=== PATIENT | female | born 1995 | race Hispanic/Latino ===

== ENCOUNTER 2019-07-30 09:27 | Emergency (ER) | payer OTHER, SELFPAY ==
--- NOTE | 2019-07-30 09:33 | ED.GENADULT ---
HPI - General Adult General Chief complaint: Back Pain/Injury Stated complaint: flank pain Time Seen by Provider: 07/30/19 09:55 Source: patient and RN notes reviewed Mode of arrival: ambulatory Limitations: no limitations History of Present Illness HPI narrative: 53 old female presents with concern for bilateral flank pain for 2 to 3 days. Reports is painful to bend over, sit, stand. Reports trouble finding a comfortable position. Denies hematuria, dysuria, abdominal pain. Reports nausea. Reports history of pyelonephritis and problems with her kidneys. She had pyelonephritis in May 2019. MD complaint: Flank pain Related Data Home Medications Medication Instructions Recorded Confirmed aripiprazole mg 07/30/19 hydroxyzine HCl 07/30/19 sertraline mg 07/30/19 Allergies Allergy/AdvReac Type Severity Reaction Status Date / Time mushroom Allergy Unknown Verified 01/15/19 10:39 Review of Systems Review of Systems: Narrative: CONSTITUTIONAL: Reports malaise. Denies chills, sweats, or fever. CARDIOVASCULAR: Denies chest pain, palpitations RESPIRATORY: Denies dyspnea. GASTROINTESTINAL: Denies abdominal pain, vomiting, diarrhea. Reports nausea GENITOURINARY: Denies dysuria or hematuria. Reports bilateral flank pain MUSCULOSKELETAL: Denies back pain, joint pain, or myalgia. NEUROLOGIC: Denies numbness, weakness, or headache. All systems reviewed & are unremarkable except as noted in HPI and below PMFSH Past Medical History Medical History (Updated 07/30/19 @ 10:15 by Leonarda Monahan NP) History of asthma History of depression History of gastroesophageal reflux (GERD) History of hypothyroidism Surgical History Surgical History (Updated 06/19/19 @ 17:11 by Franca Monk PA-C) History of cholecystectomy History of tonsillectomy Family History Family History (Updated 01/15/19 @ 12:44 by DOCTOR UNKNOWN) Grandparent Diabetes mellitus Other Family history of hypercholesterolemia Family history of malignant neoplasm of thyroid Family history of thyroid disease Hypertension Social History Social History Smoking status: Former smoker Smoking end date: 06/26/14 Alcohol intake: current Comments At time of signature, agree with nursing past medical, surgical, social and family history. There is no relevant family history pertinent to the presenting complaint Exam Narrative: Exam Narrative: GENERAL: Well-appearing, well-nourished, and in no acute distress. HEAD: Normocephalic. EYES: PERRLA, conjunctivae clear. NECK: Supple. No lymphadenopathy CHEST: Clear to auscultation. No respiratory distress. HEART: Regular rate and rhythm. No murmur heard. Normal peripheral pulses. ABDOMEN: Soft, nontender upon palpation, nondistended, normal active bowel sounds, no palpable or pulsatile masses, no guarding. Bilateral CVA tenderness, worse on the right SKIN: Warm, dry, no rash. NEURO: Alert and oriented x3. PSYCH: Normal mood and affect Course Course Emergency Course: Patient is aware of, understands and agrees to be seen in emergency department. Patient agrees to f proceed directly to the emergency department. Portions of this record may have been created with voice recognition software Vital Signs Vital signs: Reviewed. Transfer Transfered to: [facility] Transportation: Other (Private vehicle) Transfer rationale: Bilateral flank pain Accepting physician: Francis Moore Transfer comments: Patient stable for transfer via private vehicle Medical Decision Making MDM Narrative Medical decision making narrative: Exam findings warrant further evaluation emergency department; patient is non-toxic appearing and is in no distress. Patient is appropriate for transfer via private vehicle. Critical Care Time Critical Care Time Critical Care Time: No Discharge Plan Discharge Clinical Impression: Bilateral flank pain Patient Disposition: Acute Care Hospital Condition: Stable
[2019-07-30 09:45] VITALS: BP 124/72; PULSE 99; RESP 20; TEMP 36.9; O2SAT 99
--- NOTE | 2019-07-30 10:13 | PC.NURSE ---
After exam and discussion with Carmelita Monahan [employer]- pt advised to got to ED with h/o issues-pt agrees and will go to [facility] via car--staff there informed
== END 2019-07-30 10:18 | disposition short-term general hospital (02) ==
PROVIDERS: Emergency Provider Nurse Practitioner
DX: R10.9 Unspecified abdominal pain (principal); Z87.891 Personal history of nicotine dependence; J45.909 Unspecified asthma, uncomplicated; F32.9 Major depressive disorder, single episode, unspecified; K21.9 Gastro-esophageal reflux disease without esophagitis; E03.9 Hypothyroidism, unspecified
CPT/HCPCS: 81003; 99212; G0463

== ENCOUNTER 2019-07-30 10:37 | Emergency (ER) | payer OTHER, SELFPAY ==
--- NOTE | 2019-07-30 11:02 | ED.BACK ---
HPI - Back Pain/Injury General Chief Complaint: Urogenital-Female Stated Complaint: Flank pain, from Time Seen by Provider: 07/30/19 10:50 Source: patient Mode of arrival: ambulatory Limitations: no limitations History of Present Illness HPI Narrative: Pt is a 23 y/o female who presents to the ED with c/o dull BOZENA flank pain that started 3 days ago. Pt states that last night at 6PM she started having sharp stabbing pain. She reports JENNINGS, nausea, heartburn, and dysuria, but denies urinary incontinence, fever, or vomiting. Pt took Ibuprofen with no relief and she denies a chance of or STI. She states that she was in the ED on 06/19/19 for hemturia and was told she had a kidney infection, but she did not finish her full dose of Abx. Pt denies recent heavy lifting falls, saddle anesthesia, BLE swelling/pain. She states that she has rhinorrhea and sinus drainage, but denies cough or congestion. MD elicited complaint: other (flank pain) Pertinent past history: other (kidney infection) Onset (ago): day(s) (3) Timing: progressively worsening Quality: sharp, dull and stabbing Location: left flank and right flank Associated symptoms: dysuria and other (JENNINGS, nausea, heartburn) Related Data Home Medications Medication Instructions Recorded Confirmed aripiprazole mg 07/30/19 hydroxyzine HCl 07/30/19 sertraline mg 07/30/19 Allergies Allergy/AdvReac Type Severity Reaction Status Date / Time mushroom Allergy Unknown Unknown Verified 07/30/19 11:09 Review of Systems Review of Systems: Narrative: CONSTITUTIONAL: Denies fever ENT: Reports rhinorrhea and sinus drainage. Denies congestion RESPIRATORY: Denies cough. GASTROINTESTINAL: Reports nausea and heartburn. Denies vomiting GENITOURINARY: Reports: BOZENA flank pain and dysuria. Denies saddle anesthesia or urinary incontinence. NEUROLOGIC: Reports JENNINGS All systems reviewed & are unremarkable except as noted in HPI and below PMFSH Past Medical History Medical History History of asthma History of depression History of gastroesophageal reflux (GERD) History of hypothyroidism Surgical History Surgical History History of cholecystectomy History of tonsillectomy Family History Family History (Updated 01/15/19 @ 12:44 by DOCTOR UNKNOWN) Grandparent Diabetes mellitus Other Family history of hypercholesterolemia Family history of malignant neoplasm of thyroid Family history of thyroid disease Hypertension Social History Social History Smoking status: Former smoker Smoking end date: 06/26/14 Alcohol intake: current Gender identity (if verbalized by the patient): Female Exam Narrative: Exam Narrative: GENERAL: Well-appearing, well-nourished, and in no acute distress. HEAD: Normocephalic, atraumatic. EYES: PERRLA and EOMI. ENT: Nares clear, no rhinorrhea or epistaxis. Mucous membranes moist. NECK: Supple. CHEST: Clear to auscultation. No respiratory distress. HEART: Regular rate and rhythm. No murmur heard. Normal peripheral pulses. ABDOMEN: Soft, nontender, nondistended, normal active bowel sounds. BACK/SPINE/PELVIS: BOZENA CVA tenderness EXTREMITIES: Normal range of motion. No edema. SKIN: Warm, dry, no rash. NEURO: No focal deficits. Alert and oriented X3. Course Vital Signs Vital signs: Vital Signs Temperature 36.8 C 07/30/19 11:06 Pulse Rate 93 07/30/19 11:06 Respiratory Rate 18 07/30/19 11:06 Blood Pressure 136/83 07/30/19 11:06 Pulse Oximetry 100 07/30/19 11:06 Temperature 37.0 C 07/30/19 13:02 Pulse Rate 72 07/30/19 13:02 Respiratory Rate 16 07/30/19 13:02 Blood Pressure 115/64 07/30/19 13:02 Pulse Oximetry 99 07/30/19 13:02 MDM - Back Pain/Injury MDM Narrative Medical decision making narrative: Pt presented for evaluation of lower back pain in set
[2019-07-30 11:06] VITALS: BP 136/83; PULSE 93; RESP 18; TEMP 36.8; O2SAT 100
[2019-07-30 11:08] LABS: Basophils Percent Auto 0.2 % (0.2-1.2); Eosinophils Absolute Auto 0.1 K/mm3 (0-0.3); Eosinophils Percent Auto 0.7 % (0-4.4); Hematocrit 42.2 % (37.0-47.0); Hemoglobin 13.4 g/dL (12.0-15.0); Immature Granulocyte Absolute 0.05 K/mm3 (0.00-0.031); Immature Granulocyte Percent A 0.4 % (0-0.5); Lymphocytes Percent Auto 16.2 % (18.3-44.2); Mean Corpuscular HGB Conc 31.8 g/dl (32-36); Mean Corpuscular Hemoglobin 26.8 pg (26-34); Mean Corpuscular Volume 84.4 fl (80-100); Mean Platelet Volume 9.2 fl (7.4-10.4); Monocytes Absolute Auto 0.7 K/mm3 (0.1-0.6); Monocytes Percent Auto 5.5 % (2.6-8.5); Neutrophils Absolute Auto 9.5 K/mm3 (1.3-6.7); Platelet Count Result 371 k/mm3 (150-375); Red Cell Distribution Width 12.4 % (11.5-14.5); White Blood Count 12.4 K/mm3 (4.5-10.0)
[2019-07-30 11:22] LABS: Blood Urea Nitrogen 13 mg/dL (7-17); Calcium 9.5 mg/dL (8.4-10.2); Carbon Dioxide 25 mmol/L (22-30); Chloride 99 mmol/L (98-107); Estimated Glomerular Filt Rate > 60; Glucose 109 mg/dL (65-105); Potassium 3.8 mmol/L (3.4-5.0); Sodium 136 mmol/L (137-145)
[2019-07-30] MEDS: SODIUM CHLORIDE 0.9% IV 1,000 ML 999 ML IV CONT (11:23)
[2019-07-30] MEDS: ONDANSETRON INJ 4 MG/2 ML VIAL IV PUSH (11:23)
[2019-07-30 11:34] LABS: Add Urine Microscopic? YES; Appearance Urine Cloudy (Clear); Bilirubin Urine Negative (Negative); Blood Urine 2+ (Negative); Color Urine Yellow (Yellow); Glucose Urine UA Negative (Negative); Ketones Urine Negative (Negative); Leukocyte Esterase Ur 2+ LEU/UL (Negative); Mucus Urine Rare /lpf; Nitrate Urine Negative (Negative); Protein Urine Negative (Negative); Specific Grav Ur 1.024 (1.001-1.035); Squamous Epithelial Cell Urine Many /hpf (Few); Urobilinogen Urine Negative mg/dL (<2.0); WBC Urine 21-30 /hpf
[2019-07-30] MEDS: KETOROLAC 15 MG/ML VIAL (*BKC) IV PUSH (11:34)
[2019-07-30 13:02] VITALS: BP 115/64; PULSE 72; RESP 16; TEMP 37; O2SAT 99
== END 2019-07-30 13:07 | disposition home or self-care (01) ==
PROVIDERS: Emergency Provider Emergency Medicine
DX: N12 Tubulo-interstitial nephritis, not specified as acute or chronic (principal); J45.909 Unspecified asthma, uncomplicated; F32.9 Major depressive disorder, single episode, unspecified; K21.9 Gastro-esophageal reflux disease without esophagitis; E03.9 Hypothyroidism, unspecified
CPT/HCPCS: 36415; 80048; 81001; 81025; 85025; 87086; 87088; 96361; 96365; 96375; 99284; J0131; J0696; J1885; J2405; J7030

== ENCOUNTER 2019-09-17 13:17 | Emergency (ER) | payer OTHER, MEDICAID, SELFPAY ==
--- NOTE | ~2019-09-17 | XR_ITS ---
EXAMINATION: XR chest 1V portable INDICATION: Cough TECHNIQUE: Portable AP chest at 1345 hours COMPARISON: 10/12/2017 FINDINGS: The lungs are free of acute opacities. There is no pleural effusion or pneumothorax. The ca rdiomediastinal silhouette is normal. The visualized bones and soft tissues are unremarkable. IMPRESSION: 1. No acute cardiopulmonary abnormality. Reviewed, dictated and finalized at location B.
--- NOTE | 2019-09-17 13:20 | PC.NURSE ---
Attempted to contact Infection control, no answer, left message, photograph developer Carol informed.
[2019-09-17 13:24] VITALS: BP 130/77; PULSE 106; RESP 20; TEMP 37.2; O2SAT 98
--- NOTE | 2019-09-17 13:24 | ED.URI ---
HPI - URI/Sore Throat General Chief Complaint: Upper Respiratory Infection Stated Complaint: Jazielid sshaneka guerra Time Seen by Provider: 09/17/19 13:22 Source: patient and RN notes reviewed Mode of arrival: ambulatory Limitations: no limitations History of Present Illness HPI Narrative: A 23 y/o female presents to the ED with a worsening dry cough and SOB for the past 6 days. She states that she recently went on a group trip to [place] and returned on 09/06/19 and then began to have a dry cough and SOB on 09/11/19. She reports associated JENNINGS, rhinorrhea, and sneezing. She also reports a fever for the past 3 days. She notes that she went to her PCP and had negative strep test. She denies any sick contacts. MD elicited complaint: cough (dry) and other (SOB) Pertinent past history: asthma Onset (ago): day(s) (6) Consistency: progressively worsening Context: recent travel Associated symptoms: fever, headache, rhinorrhea and other (sneezing) Related Data Home Medications Medication Instructions Recorded Confirmed aripiprazole mg 07/30/19 08/16/19 hydroxyzine HCl 07/30/19 08/16/19 sertraline mg 07/30/19 08/16/19 Allergies Allergy/AdvReac Type Severity Reaction Status Date / Time mushroom Allergy Unknown Unknown Verified 07/30/19 11:09 Review of Systems Review of Systems: All systems reviewed & are unremarkable except as noted in HPI and below Constitutional: Constitutional: Reports fever(s) ENT: Reports nasal discharge and Reports other (sneezing) Respiratory: Respiratory: Reports cough (dry) and Reports dyspnea Neurologic: Reports headache(s) [facility] Past Medical History Medical History Acute pharyngitis, unspecified (11/09/17) Bipolar 1 disorder Bronchitis Endometriosis ETD (eustachian tube dysfunction) Hematuria Hepatic steatosis Hepatosplenomegaly History of asthma History of depression History of gastroesophageal reflux (GERD) History of hypothyroidism Hx: UTI (urinary tract infection) Hypotension Leukocytosis Patellofemoral stress syndrome of right knee PCOS (polycystic ovarian syndrome) Previous known suicide attempt Renal cyst Tendinopathy of right biceps tendon Surgical History Surgical History History of cholecystectomy History of tonsillectomy Family History Family History Grandparent Diabetes mellitus Other Family history of hypercholesterolemia Family history of malignant neoplasm of thyroid Family history of thyroid disease Hypertension Social History Social History Years smoked: 3 Smoking status: Former smoker Tobacco type: cigarettes Second hand tobacco smoke exposure: No Smoking end date: 02/24/18 Alcohol intake: current Gender identity (if verbalized by the patient): Female Exam Narrative: Exam Narrative: General appearance: Well-developed, well-nourished, morbidly obese, no family member at the bedside Skin: Normal color Head: Normocephalic, nontraumatic Eyes: Clear conjunctiva ENT: Oropharynx normal, ears normal, nose normal Neck: Supple, nontender Chest and respiratory: Airway patent, no respiratory distress, no accessory muscle use Heart: Regular rate/rhythm Abdomen: Soft, nontender, no organomegaly, quiet bowel sounds Vascular: Normal peripheral pulses, normal capillary refill. Musculoskeletal: Normal range of motion, nontender back Neurologic: Alert and oriented ?3, MOLDER CLOSED MOLDS is normal as tested, no gross motor deficit Course Course Emergency Course: Unchanged Vital Signs Vital signs: Vital Signs T
--- NOTE | 2019-09-17 14:34 | ECG_ITS ---
Measurements Intervals [place] Rate: 96 P: 42 OR: 154 QRS: 15 QRSD: 93 T: 17 QT: 358 QTc: 453 Interpretive Statements SINUS RHYTHM BASELINE WANDER- I, II, III, AVF, V1-V6 BORDERLINE ECG Electronically Signed On 09-17-2019 17:50:48 CDT by Jaspreet Frausto D.O.
== END 2019-09-17 15:04 | disposition home or self-care (01) ==
PROVIDERS: Emergency Provider Emergency Medicine; PCP Family Medicine
DX: J06.9 Acute upper respiratory infection, unspecified (principal); F31.9 Bipolar disorder, unspecified; N80.9 Endometriosis, unspecified; J45.909 Unspecified asthma, uncomplicated; K21.9 Gastro-esophageal reflux disease without esophagitis; E03.9 Hypothyroidism, unspecified; Z87.440 Personal history of urinary (tract) infections; E28.2 Polycystic ovarian syndrome
CPT/HCPCS: 71045; 87804; 93005; 99283

== ENCOUNTER 2019-11-12 10:35 | Outpatient (CLI) | payer OTHER, MEDICAID, SELFPAY ==
--- NOTE | ~2019-11-12 | US_ITS ---
EXAMINATION: US thyroid DATE: 11/12/2019 10:59 INDICATION: Neck swelling TECHNIQUE: Multiple ultrasound images of the thyroid were obtained. COMPARISON: None. FINDINGS: The right thyroid lobe measures 5.5 x 3.2 x 1.5 cm. The left thyroid lobe measures 3.8 x 1.8 x 1.6 c m. Thyroid isthmus measures 4-5 mm in thickness. No discrete nodules identified. There is normal echo texture, echogenicity and vascular flow throughout the thyroid gland. IMPRESSION: 1. Normal thyroid ultrasound. Reviewed, dictated and finalized at location A.
== END 2019-11-12 10:36 | disposition home or self-care (01) ==
PROVIDERS: PCP Family Medicine; Visit Provider Nurse Practitioner Family
DX: R22.1 Localized swelling, mass and lump, neck (principal)
CPT/HCPCS: 76536

== ENCOUNTER 2019-12-13 02:08 | Emergency (ER) | payer MEDICAID, SELFPAY ==
--- NOTE | 2019-12-13 02:49 | ED.BACK ---
HPI - Back Pain/Injury General Chief Complaint: Back Pain/Injury Time Seen by Provider: 12/13/19 02:49 Source: patient Mode of arrival: ambulatory Limitations: no limitations History of Present Illness HPI Narrative: Patient is a 24-year-old female who presents for evaluation of lower back pain. Patient reports onset of symptoms yesterday, patient states she was doing some exercising outside, running and going up and down stairs, later in the evening she noticed her back started feeling sore. The pain in the back radiates down to both legs. No current numbness. She is able to ambulate. Movement exacerbates the pain. Pain is described as sharp, shooting in nature. Patient also noticed some dysuria this morning. She does have a history of urinary tract infection a couple of months ago. No fever, chills, belly pain, vaginal discharge or bleeding. No saddle anesthesia. No nausea or vomiting. No recent fall or injury otherwise. No history of cancer. Related Data Home Medications Medication Instructions Recorded Confirmed aripiprazole mg 07/30/19 08/16/19 hydroxyzine HCl 07/30/19 08/16/19 sertraline mg 07/30/19 08/16/19 Allergies Allergy/AdvReac Type Severity Reaction Status Date / Time mushroom Allergy Unknown Unknown Verified 07/30/19 11:09 Review of Systems Review of Systems: Narrative: CONSTITUTIONAL: Denies fever, chills, or sweats. CARDIOVASCULAR: Denies chest pain, palpitations, or edema. RESPIRATORY: Denies cough or dyspnea. GASTROINTESTINAL: Denies abdominal pain, nausea, vomiting, or diarrhea. GENITOURINARY: Reports dysuria SKIN: Denies rash or itching. MUSCULOSKELETAL: Reports lower back pain, denies joint pain, or myalgia. NEUROLOGIC: Denies headache, numbness, or weakness. [facility] Past Medical History Medical History Acute pharyngitis, unspecified (11/09/17) Bipolar 1 disorder Bronchitis Endometriosis ETD (eustachian tube dysfunction) Hematuria Hepatic steatosis Hepatosplenomegaly History of asthma History of depression History of gastroesophageal reflux (GERD) History of hypothyroidism Hx: UTI (urinary tract infection) Hypotension Leukocytosis Patellofemoral stress syndrome of right knee PCOS (polycystic ovarian syndrome) Previous known suicide attempt Renal cyst Tendinopathy of right biceps tendon Surgical History Surgical History History of cholecystectomy History of tonsillectomy Family History Family History Grandparent Diabetes mellitus Other Family history of hypercholesterolemia Family history of malignant neoplasm of thyroid Family history of thyroid disease Hypertension Social History Social History Years smoked: 3 Smoking status: Former smoker Tobacco type: cigarettes Second hand tobacco smoke exposure: No Smoking end date: 02/24/18 Alcohol intake: current Gender identity (if verbalized by the patient): Female Exam Narrative: Exam Narrative: GENERAL: Awake, alert, conversant HEAD: Normocephalic, atraumatic. EYES: PERRLA and EOMI. ENT: Nares clear, no rhinorrhea or epistaxis. Mucous membranes moist. NECK: Supple. CHEST: No respiratory distress, breathing even and non labored HEART: Regular rate, sinus rhythm ABDOMEN:Non distended, non tender EXTREMITIES: Normal range of motion. No edema. Thorax: Tenderness with palpation of the lumbar paraspinal muscles which exactly reproduce pain. Bilateral SI joint tenderness. SKIN: Warm, dry, no rash. NEURO:No focal deficits. Alert and oriented x3 ambulatory with a narrow base, steady gait. Intact EHL/FHL. Strength in bilateral lower extremities 5/5. Course Vital Signs Vital signs: Vital Signs Temperature 37.0 C 12/13/19 03:04 Pulse Rate 85 12/13/19 03:04 Respiratory Rate 18
[2019-12-13 03:04] VITALS: BP 111/100; PULSE 85; RESP 18; TEMP 37; O2SAT 98
[2019-12-13] MEDS: ACETAMINOPHEN 500 MG TABLET 1000 MG PO (03:15)
[2019-12-13] MEDS: KETOROLAC 30 MG/ML VIAL (*BKC) IV PUSH (03:15)
[2019-12-13 03:18] LABS: Basophils Percent Auto 0.2 % (0.2-1.2); Eosinophils Absolute Auto 0.1 K/mm3 (0-0.3); Hematocrit 41.5 % (37.0-47.0); Hemoglobin 13.3 g/dL (12.0-15.0); Immature Granulocyte Absolute 0.05 K/mm3 (0.00-0.031); Immature Granulocyte Percent A 0.4 % (0-0.5); Lymphocytes Absolute Auto 2.61 K/mm3 (0.9-3.2); Lymphocytes Percent Auto 22.6 % (18.3-44.2); Mean Corpuscular Hemoglobin 26.3 pg (26-34); Mean Corpuscular Volume 82.2 fl (80-100); Mean Platelet Volume 9.4 fl (7.4-10.4); Monocytes Absolute Auto 0.7 K/mm3 (0.1-0.6); Monocytes Percent Auto 5.8 % (2.6-8.5); Neutrophils Absolute Auto 8.1 K/mm3 (1.3-6.7); Platelet Count Result 342 k/mm3 (150-375); Red Blood Count 5.05 M/mm3 (4.2-5.4); Red Cell Distribution Width 13.1 % (11.5-14.5); White Blood Count 11.6 K/mm3 (4.5-10.0)
[2019-12-13 03:36] LABS: Blood Urea Nitrogen 12 mg/dL (7-17); Calcium 9.2 mg/dL (8.4-10.2); Carbon Dioxide 27 mmol/L (22-30); Chloride 102 mmol/L (98-107); Estimated CRCL calculation 135 ml/min; Estimated Glomerular Filt Rate > 60; Glucose 133 mg/dL (65-105); Potassium 3.7 mmol/L (3.4-5.0); Sodium 136 mmol/L (137-145)
--- NOTE | 2019-12-13 03:39 | PC.NURSE ---
pt has been unsuccessful in attempting to collect a urine sample, twice since arrival
[2019-12-13 04:50] VITALS: BP 120/66; PULSE 90; RESP 20; O2SAT 98
[2019-12-13 05:29] LABS: Mucus Urine Heavy /lpf; RBC Urine 0-2 /hpf (0-2); Squamous Epithelial Cell Urine Many /hpf (Few)
[2019-12-13 05:30] LABS: Color Urine Yellow (Yellow)
[2019-12-13 05:32] LABS: Add Urine Microscopic? NO; Appearance Urine Clear (Clear)
[2019-12-13 05:33] LABS: Blood Urine Negative (Negative); Glucose Urine UA Negative (Negative); Ketones Urine Negative (Negative); Protein Urine Negative (Negative); pH Urine 5.5 (5.0-9.0)
[2019-12-13 05:34] LABS: Bilirubin Urine Negative (Negative); Leukocyte Esterase Ur Negative LEU/UL (Negative); Nitrate Urine Negative (Negative); Urobilinogen Urine 0.2 mg/dL (<2.0)
[2019-12-13 05:53] VITALS: BP 111/57; PULSE 72; RESP 18; O2SAT 98
== END 2019-12-13 05:45 | disposition home or self-care (01) ==
PROVIDERS: Emergency Provider Emergency Medicine; PCP Nurse Practitioner Family
DX: S39.012A Strain of muscle, fascia and tendon of lower back, initial encounter (principal); M54.16 Radiculopathy, lumbar region; Z87.891 Personal history of nicotine dependence; F31.9 Bipolar disorder, unspecified; N80.9 Endometriosis, unspecified; J45.909 Unspecified asthma, uncomplicated; K21.9 Gastro-esophageal reflux disease without esophagitis; Z87.440 Personal history of urinary (tract) infections; E28.2 Polycystic ovarian syndrome; Y93.02 Activity, running; X50.9XXA Other and unspecified overexertion or strenuous movements or postures, initial encounter
CPT/HCPCS: 36415; 80048; 81003; 81025; 85025; 96374; 99284; A9270; J1885

== ENCOUNTER 2020-01-06 11:01 | Inpatient (IN) | payer BC, SELFPAY ==
[2020-01-06] VITALS (7 sets, daily range): BP systolic 96–138; BP diastolic 34–80; PULSE 94–132; RESP 16–24; TEMP 36.6–37.6; O2SAT 96–100; BMI 45.3
--- NOTE | ~2020-01-06 | XR_ITS ---
XR chest 1V portable 01/10/2020 12:55 Indication: Shortness of breath. Bilateral pneumonia. Procedure: AP portable chest Comparison: Comparison to multiple prior studies sequentially, with oldest reviewed study dated 08/2016. Findings: Heart size normal for technique. Bibasilar atelectasis. No focal pneumonia, edema, pleural effusion or pneumothorax. Impression: 1: Bibasilar atelectasis. Reviewed, dictated and finalized at location B. Impression: 1: Bibasilar atelectasis.
--- NOTE | ~2020-01-06 | XR_ITS ---
XR chest 1V portable DATE: 01/06/2020 12:08 INDICATION: Shortness of breath TECHNIQUE: Portable AP chest COMPARISON: None FINDINGS: Normal heart size. No hilar or mediastinal enlargement. No pulmonary infiltrate or consol idation, pulmonary vascular congestion or pleural effusion. IMPRESSION: No active cardiopulmonary disease Reviewed, dictated and finalized at location A.
--- NOTE | ~2020-01-06 | CT_ITS ---
EXAMINATION: CT chest abdomen pelvis w con DATE: 01/06/2020 14:33 INDICATION: Cough, shortness of breath. TECHNIQUE: Computed tomography (CT) of the chest, abdomen, and pelvis was performed with 100 cc Omnip aque 350 intravenous contrast. Automated exposure control and iterative reconstruction technique were employed. Exam dose: 1961.34 mGy-cm total exam DLP. COMPARISON: 06/19/2019 CT abdomen pelvis 10/12/2017 portable AP chest FINDINGS: CHEST CT: Included portion of the thyroid gland is normal. There are nonspecific nonenlarged prevascular lymph nodes measuring up to 6 mm cross-section diameter . An approximately 7 mm cross-section diameter right paratracheal node is noted. There are calcified right hilar nodes. Approximately 11.5 x 17 mm subcarinal lymph node prominence. No hilar or mediastinal mass lesion or lymphadenopathy is evident otherwise. Normal caliber of the thoracic aorta; no evidence of thoracic aortic aneurysm or dissection. Normal heart size. No pericardial or pleural effusion. There are bilateral areas of focal atelectasis and infiltrate involving both upper lobes, the lingula and both lower lobes, left greater than right. ABDOMEN/PELVIS CT: Status post cholecystectomy. No hepatic space-occupying mass lesion. There is hepatic steatosis. There is splenomegaly, spleen berny suring 14.6 centimeters height. No pancreatic mass lesion, ductal dilatation or pancreatic calcificat ion. Normal adrenal glands. There is a small probable cyst of the right kidney. The kidneys are otherwise unremarkable. No urinar y tract calculus or hydroureteronephrosis. Normal caliber of the abdominal aorta. No intraperitoneal or retroperitoneal or pelvic mass lesion or adenopathy or ascites. The urinary bladder, uterus and adnexal areas are unremarkable. Mild colonic diverticulosis; no CT evidence of diverticulitis. No bowel obstruction, bowel wall thick ening, pneumatosis or intraperitoneal free air. Normal appendix. Included skeletal structures are unremarkable. IMPRESSION: Patchy bilateral infiltrates and/or atelectasis, bilateral pneumonia is suggested. There is likely mild mediastinal and hilar lymph node prominence. Mild colonic diverticulosis Probable small right renal cyst Reviewed, dictated and finalized at [facility]. Reviewed, dictated and finalized at [facility]. IMPRESSION: Patchy bilateral infiltrates and/or atelectasis, bilateral pneumon ia is suggested. There is likely mild mediastinal and hilar lymph node prominen ce. Mild colonic diverticulosis Probable small right renal cyst
--- NOTE | 2020-01-06 11:50 | ED.URI ---
HPI - URI/Sore Throat General Chief Complaint: Upper Respiratory Infection Stated Complaint: st, fever, no voice Time Seen by Provider: 01/06/20 11:20 Source: patient Mode of arrival: ambulatory Limitations: no limitations History of Present Illness HPI Narrative: This is a 24-year-old female that presents to the emergency department for cold symptoms x1 week. Reports fever, sore throat, cough, congestion, and shortness of breath. Also reports she has had some diarrhea. 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 Denies abdominal pain or vomiting. Related Data Home Medications Medication Instructions Recorded Confirmed aripiprazole mg 07/30/19 08/16/19 hydroxyzine HCl 07/30/19 08/16/19 sertraline 50 mg 07/30/19 08/16/19 Symbicort 01/06/20 Allergies Allergy/AdvReac Type Severity Reaction Status Date / Time mushroom Allergy Unknown Unknown Verified 01/06/20 11:18 Review of Systems Review of Systems: Narrative: CONSTITUTIONAL: Reports fever ENT: Reports congestion, sore throat CARDIOVASCULAR: Denies chest pain RESPIRATORY: Reports cough and dyspnea. GASTROINTESTINAL: Reports diarrhea. Denies abdominal pain, nausea, vomiting GENITOURINARY: Denies dysuria or hematuria. All systems reviewed & are unremarkable except as noted in HPI and below PMFSH Social History Social History Years smoked: 3 Smoking status: Former smoker Tobacco type: cigarettes Second hand tobacco smoke exposure: No Smoking end date: 02/24/18 Alcohol intake: current Gender identity (if verbalized by the patient): Female Exam Narrative: Exam Narrative: GENERAL: Well-appearing, obese, and in no acute distress. HEAD: Normocephalic, atraumatic. EYES: EOMI. ENT: Nares clear, no rhinorrhea or epistaxis. Mucous membranes moist. Oropharynx without tonsillar hypertrophy exudate or other lesions. Bilateral TMs pearly sanders non-bulging NECK: Supple. No adenopathy or masses. CHEST: Clear to auscultation. No respiratory distress. No wheezes rales or rhonchi HEART: Regular rhythm, tachycardic. No murmur heard. Normal peripheral pulses. ABDOMEN: Soft, nontender, nondistended, normal active bowel sounds. EXTREMITIES: Normal range of motion. No edema. SKIN: Warm, dry, no rash. NEURO: No focal deficits. Alert and oriented x3. PSYCH: Normal mood and affect Course Consultations Consultation #1: Spoke with hospitalist about patient and work-up who accepts admission Date: 01/06/20 Time: 17:25 Vital Signs Vital signs: Vital Signs Temperature 98.0 F 01/06/20 11:15 Pulse Rate 132 H 01/06/20 11:15 Respiratory Rate 18 01/06/20 11:15 Blood Pressure 138/80 01/06/20 11:15 Pulse Oximetry 100 01/06/20 11:15 Temperature 98.5 F 01/06/20 16:44 Pulse Rate 101 H 01/06/20 16:44 Respiratory Rate 23 H 01/06/20 16:44 Blood Pressure 112/68 01/06/20 16:44 Pulse Oximetry 96 01/06/20 16:44 MDM - URI/Sore Throat MDM Narrative Medical decision making narrative: Patient presents to the emergency department for cold symptoms x1 week. Patient tachycardic upon arrival, this improved with light hydration. Patient's oxygen saturation has remained normal on room air. Has been tachypneic intermittently. CBC with leukocytosis to 19.2. Metabolic panel with elevation in blood glucose. Hemoglobin A1c was obtained which was elevated to 6. CRP is elevated to 20.5. Lactic is not elevated. UA without evidence of infection. Strep screen was negative. CT scan of the chest, abdomen and pelvis shows patchy bilateral infiltrates of the lungs. SARS-CoV-2 sent. Patient will be admitted for further observation. Spoke with hospitalist about patient and work-up who accepts admission Lab Data Attestation: I reviewed the patient's lab results. Result diagrams: 01/06/20 11:57 01/06/20 11:57 Labs: Lab Results 01/06/2001/05
[2020-01-06] MEDS: SODIUM CHLORIDE 0.9% IV 500 ML 999 ML IV CONT (11:56)
[2020-01-06 12:10] LABS: Basophils Percent Auto 0.2 % (0.2-1.2); Eosinophils Absolute Auto 0.1 K/mm3 (0-0.3); Eosinophils Percent Auto 0.7 % (0-4.4); Hematocrit 37.3 % (37.0-47.0); Hemoglobin 12.1 g/dL (12.0-15.0); Immature Granulocyte Percent A 0.5 % (0-0.5); Lymphocytes Percent Auto 6.8 % (18.3-44.2); Mean Corpuscular HGB Conc 32.4 g/dl (32-36); Mean Corpuscular Hemoglobin 26.7 pg (26-34); Mean Corpuscular Volume 82.3 fl (80-100); Monocytes Absolute Auto 0.7 K/mm3 (0.1-0.6); Monocytes Percent Auto 3.6 % (2.6-8.5); Neutrophils Percent Auto 88.2 % (45.5-73.1); Platelet Count Result 329 k/mm3 (150-375); Red Blood Count 4.53 M/mm3 (4.2-5.4); Red Cell Distribution Width 13.1 % (11.5-14.5); White Blood Count 19.2 K/mm3 (4.5-10.0)
[2020-01-06 12:23] LABS: Lactic Acid Reflex 1.6 mmol/L (0.7-2.1)
[2020-01-06 12:26] LABS: Alanine Aminotransferase 18 U/L (4-35); Albumin Level 3.7 g/dL (3.5-5.1); Alkaline Phosphatase 73 U/L (38-126); Aspartate Amino Transferase 21 U/L (14-36); Bilirubin,Total 0.5 mg/dL (0.2-1.3); Blood Urea Nitrogen 8 mg/dL (7-17); Calcium 8.7 mg/dL (8.4-10.2); Carbon Dioxide 23 mmol/L (22-30); Chloride 106 mmol/L (98-107); Estimated CRCL calculation 159 ml/min; Estimated Glomerular Filt Rate > 60; Glucose 141 mg/dL (65-105); Lactate Dehydrogenase 296 U/L (313-618); Sodium 136 mmol/L (137-145)
[2020-01-06 12:36] LABS: CRP 20.5 mg/dL (<1.0)
[2020-01-06 13:21] LABS: Add Urine Microscopic? NO; Appearance Urine Clear (Clear); Bacteria Urine Trace /hpf; Bilirubin Urine Negative (Negative); Blood Urine Negative (Negative); Color Urine Yellow (Yellow); Glucose Urine UA Negative (Negative); Ketones Urine Negative (Negative); Leukocyte Esterase Ur Negative LEU/UL (Negative); Mucus Urine Rare /lpf; Nitrate Urine Negative (Negative); Protein Urine Negative (Negative); RBC Urine 0-2 /hpf (0-2); Specific Grav Ur 1.017 (1.001-1.035); Squamous Epithelial Cell Urine Few /hpf (Few); Urobilinogen Urine Negative mg/dL (<2.0); WBC Urine 0-3 /hpf
--- NOTE | 2020-01-06 21:33 | ADMGEN ---
This patient, Anabel Garcia, was admitted to [facility] Surg Room 329-01. Patient/family oriented to hospital policies and general routines including ID bracelet, bed and alarms, visiting hours, pain management, procedures, bathroom and other care routines, personal items, smoking policy, room service/diet, and visiting hours. Valuables list has been completed. Information on how to activate the Rapid Response Team has been discussed. Patient/Family are encouraged to report perceived risks to care and to ask questions if they do not understand what they are told or what they should do.
[2020-01-07] VITALS (14 sets, daily range): BP systolic 114–138; BP diastolic 61–76; PULSE 74–117; RESP 16–26; TEMP 36.8–37.6; O2SAT 92–98
[2020-01-07 11:07] LABS: Monoscreen Negative (Negative); Negative Monotest Control Negative (Negative); Positive Monotest Control Positive (Positive)
[2020-01-07] MEDS: ALBUTEROL SULFATE (*SP) AEROSOL 1 PUFF 2 PUFF INHALATION ×3 (11:46→21:26)
[2020-01-07] MEDS: methylPREDNISolone SOD SUCC 125 MG VIAL 60 MG IV PUSH ×2 (13:18→18:40)
--- NOTE | 2020-01-07 14:12 | PM.IMHP ---
H&P: HPI History of Present Illness Chief complaint: Pneumonia Narrative: Anabel Garcia is a 24 year old female that presentes to the hospital with weakness, dry cough, malaise , sore throat and myalgias for the last week. She also reports SOB but no chest pain. She has been having diarrhea but no abdominal pain. She works at a [employer] and she states that some of the residents there had been diagnosed with COID 19. Review of Systems Review of Systems: All systems reviewed & are unremarkable except as noted in HPI and below PMFSH Past Medical History Medical History Acute pharyngitis, unspecified (11/09/17) Bipolar 1 disorder Bronchitis Endometriosis ETD (eustachian tube dysfunction) Hematuria Hepatic steatosis Hepatosplenomegaly History of asthma History of depression History of gastroesophageal reflux (GERD) History of hypothyroidism Hx: UTI (urinary tract infection) Hypotension Leukocytosis Patellofemoral stress syndrome of right knee PCOS (polycystic ovarian syndrome) Previous known suicide attempt Renal cyst Tendinopathy of right biceps tendon Surgical History Surgical History History of cholecystectomy History of tonsillectomy Family History Family History Grandparent Diabetes mellitus Other Family history of hypercholesterolemia Family history of malignant neoplasm of thyroid Family history of thyroid disease Hypertension Social History Social History Years smoked: 3 Smoking status: Never smoker Tobacco type: cigarettes Second hand tobacco smoke exposure: No Smoking end date: 02/24/18 Alcohol intake: never Substance use: never Gender identity (if verbalized by the patient): Female Spiritual care concerns: No Meds Home Medications and Allergies Home Medications Medication Instructions Recorded Confirmed Type aripiprazole [Abilify] 5 mg PO HS 07/30/19 01/06/20 History hydroxyzine HCl 25 mg PO HS PRN 07/30/19 01/06/20 History sertraline [Zoloft] 50 mg PO HS 07/30/19 01/06/20 History acetaminophen 500 mg PO Q6H PRN #30 cap 12/13/19 01/06/20 Rx ibuprofen 400 mg PO TID PRN 10 Days #30 12/13/19 01/06/20 Rx tablet budesonide-formoterol [Symbicort] 2 puff INHALATION Q12H 01/06/20 01/06/20 History Allergies Allergy/AdvReac Type Severity Reaction Status Date / Time mushroom Allergy Unknown Unknown Verified 01/06/20 11:18 Vital Signs Vital Signs - 24 hr 01/06/20 16:44 01/06/20 18:40 01/06/20 19:35 Temperature 98.5 F 99.2 F 99.6 F Pulse Rate 101 H 107 H 102 H Respiratory Rate 23 H 16 24 H Blood Pressure 112/68 96/65 L 123/59 L Pulse Oximetry 96 96 98 01/06/20 22:00 01/07/20 00:00 01/07/20 02:00 Temperature 99.0 F 99.3 F Pulse Rate 103 H 91 93 Respiratory Rate 22 H 20 Blood Pressure 132/71 130/76 Pulse Oximetry 97 95 01/07/20 04:00 01/07/20 06:00 01/07/20 08:00 Temperature 98.5 F Pulse Rate 78 88 74 Respiratory Rate 22 H Blood Pressure 114/71 Pulse Oximetry 95 01/07/20 10:00 01/07/20 11:52 Temperature 99.0 F Pulse Rate 91 97 Respiratory Rate 26 H 20 Blood Pressure 124/69 Pulse Oximetry 94 92 Exam Const: General: no acute distress HENMT: Mouth: Yes moist mucous membranes Eyes: General: appearance normal, both eyes and all related structures Pupils: Equal, round and reactive pupils present Neck: Neck: supple and no JVD Resp: Auscultation: crackles, wheezes and diminished lung sounds Other: Not using accessory muscles to breath. Cardio: Rate: regular rate and tachycardic Rhythm: regular rhythm GI: GI Palp: Yes Soft to palpation Percussion: Yes normal to percussion Auscultation: normal bowel sounds Other: No guarding. Skin: General skin exam: normal color and no rashes or lesions
[2020-01-07 14:53] LABS: SARS-CoV-2 RNA PCR Negative
[2020-01-07 18:19] LABS: Glucose Point of Care 124 (65-105)
[2020-01-07] MEDS: ARIPiprazole 5 MG TABLET PO (20:11)
[2020-01-07] MEDS: SERTRALINE HCL 50 MG TABLET PO (20:12)
[2020-01-07] MEDS: ONDANSETRON INJ 4 MG/2 ML VIAL IV PUSH (20:13)
[2020-01-07 23:34] LABS: Glucose Point of Care 247 (65-105)
[2020-01-08] VITALS (12 sets, daily range): BP systolic 109–138; BP diastolic 53–72; PULSE 78–127; RESP 20–22; TEMP 36.4–37.2; O2SAT 89–96
[2020-01-08] MEDS: methylPREDNISolone SOD SUCC 125 MG VIAL 60 MG IV PUSH ×4 (00:41→18:07)
[2020-01-08] MEDS: INSULIN ASPART (*BKC) 100 UNITS/ML SUB-Q ×3 (00:41→18:08)
[2020-01-08] MEDS: IBUPROFEN 400 MG TABLET PO ×3 (05:46→18:14)
[2020-01-08 06:49] LABS: Blood Urea Nitrogen 9 mg/dL (7-17); Calcium 9.6 mg/dL (8.4-10.2); Carbon Dioxide 20 mmol/L (22-30); Chloride 105 mmol/L (98-107); Estimated CRCL calculation 159 ml/min; Estimated Glomerular Filt Rate > 60; Glucose 293 mg/dL (65-105); Potassium 4.3 mmol/L (3.4-5.0); Sodium 135 mmol/L (137-145)
[2020-01-08 08:54] LABS: Glucose Point of Care 223 (65-105)
[2020-01-08] MEDS: ALBUTEROL SULFATE (*SP) AEROSOL 1 PUFF 2 PUFF INHALATION ×2 (09:20→13:43)
--- NOTE | 2020-01-08 09:30 | PM.IMPN ---
Progress Note: A&P Assessment and Plan (1) Suspected 2019 novel coronavirus infection: Code(s): Z20.828 - Contact with and (suspected) exposure to other viral communicable diseases Status: Acute Assessment and Plan: Highly suspicious despite first negative test given the high inflammatory markers ( CRp LDH) and exposure. Continue supportive therapy, second PCR is pending. She remains on room air, slowly improving. (2) Pneumonia: Qualifiers: Laterality: bilateral Lung location: lower lobe of lung Pneumonia type: due to unspecified organism Qualified Code(s): J18.9 - Pneumonia, unspecified organism Code(s): J18.9 - Pneumonia, unspecified organism Status: Acute Assessment and Plan: Could be a viral pneumonia due to COVID 19 but there is a possibility of a bacterial PNA. Continue ceftriaxone and doxycycline. (3) Asthma: Code(s): J45.909 - Unspecified asthma, uncomplicated Status: Acute Assessment and Plan: On MDI only due to possible COVID. On steroids. (4) Hyperglycemia: Code(s): R73.9 - Hyperglycemia, unspecified Status: Acute Assessment and Plan: She is prediabetic with a Hb A1 c of 6% however she is expected to be hyperglycemic with the steroids and the underlying infection. On ISS we will add a low dose of long acting insulin since her glucose remains high. (5) Bipolar disorder, curr episode mixed, severe, w/o psychotic features: Code(s): F31.63 - Bipolar disorder, current episode mixed, severe, without psychotic features Status: Chronic Assessment and Plan: Cont home meds Subjective Date/time seen: 01/08/20 09:30 Exam Const: General: no acute distress HENMT: Mouth: Yes moist mucous membranes Eyes: General: appearance normal, both eyes and all related structures Pupils: Equal, round and reactive pupils present Neck: Neck: supple and no JVD Resp: Auscultation: crackles, wheezes and diminished lung sounds Other: Not using accessory muscles to breath. Cardio: Rate: regular rate and tachycardic Rhythm: regular rhythm GI: Auscultation: normal bowel sounds Other: No guarding. Skin: General skin exam: normal color and no rashes or lesions noted Neuro: Cranial nerves: Yes Equal, round and reactive pupils present Speech: normal speech Motor exam (neuro): 5/5 motor strength present throughout and Normal motor muscle tone present throughout Sensory Exam: normal sensation Extrem: General: normal to inspection Psych: Affect: normal affect Objective Data Vital Signs Vital Signs: Vital Signs - 24 hr 01/07/20 10:00 01/07/20 11:52 01/07/20 12:00 Temperature 99.0 F Pulse Rate 91 97 117 H Respiratory Rate 26 H 20 Blood Pressure 124/69 Pulse Oximetry 94 92 01/07/20 14:00 01/07/20 16:00 01/07/20 18:00 Temperature 99.7 F H 98.6 F Pulse Rate 96 102 H 91 Respiratory Rate 24 H 18 Blood Pressure 122/73 116/62 Pulse Oximetry 98 95 01/07/20 20:00 01/07/20 21:27 01/07/20 21:59 Temperature 98.3 F Pulse Rate 93 93 96 Respiratory Rate 16 18 Blood Pressure 138/61 Pulse Oximetry 94 01/08/20 00:00 01/08/20 02:00 01/08/20 04:00 Temperature 98.2 F Pulse Rate 92 78 90 Respiratory Rate 20 Blood Pressure 109/53 L Pulse Oximetry 94 01/08/20 06:00 Temperature 98.4 F Pulse Rate 81 Respiratory Rate 20 Blood Pressure 113/62 Pulse Oximetry 93 Intake/Output Intake/Output: Intake & Output 01/05/20 01/06/20 01/07/20 01/08/20 23:59 23:59 23:59 23:59 Intake Total 900 1960 900 Output Total 800 850 Balance 900 1160 50 Meds/Results Medications: Active Medications Generic Name Dose Route Start Last Admin Trade Name Freq PRN Reason Stop Dose Admin Albuterol 2 puff 01/07/20 12:00 01/08/20 09:20 Proventil Hfa INHALATION 2 puff QIDRT LEONARD Administration Aripiprazole 5 mg 01/07/20 21:00 01/07/20 20:11 Abilify PO 5 mg HS SC
[2020-01-08 11:05] LABS: Glucose Point of Care 224 (65-105)
[2020-01-08 12:34] LABS: Glucose Point of Care 219 (65-105)
[2020-01-08 12:43] LABS: SARS-CoV-2 RNA PCR Negative
[2020-01-08 17:22] LABS: Glucose Point of Care 255 (65-105)
[2020-01-08 17:30] LABS: Hematocrit 38.3 % (37.0-47.0); Hemoglobin 12.4 g/dL (12.0-15.0); Mean Corpuscular HGB Conc 32.4 g/dl (32-36); Mean Corpuscular Hemoglobin 26.2 pg (26-34); Platelet Count Result 488 k/mm3 (150-375); Red Blood Count 4.73 M/mm3 (4.2-5.4); Red Cell Distribution Width 12.9 % (11.5-14.5); White Blood Count 27.8 K/mm3 (4.5-10.0)
[2020-01-08 17:46] LABS: Band Neutrophils Percent 2 % (0-6); Lymphocytes Absolute Manual 1.39 K/mm3 (1.1-4.5); Monocytes Absolute Manual 0.27 K/mm3 (0.1-0.90); Monocytes Percent Manual 1 % (3-9); Neutrophils Absolute Manual 26.13 K/mm3 (1.7-7.2); Neutrophils Percent Manual 92 % (46-73); Total Cells Counted 100
[2020-01-08 17:47] LABS: Platelet Estimate Increased (Adequate)
--- NOTE | 2020-01-08 20:02 | PC.NURSE ---
Pt informed me her IV was burning and hurting after I pushed her solumedrol 1800. I called Dr. Botello to notify him that this will have been her fifth IV (two performed under ultrasound). I asked if we could switch her to PO medications, at least for tonight, until we could try again tomorrow with Jeannine. We did discuss that we may need to get a PICC line for her. At this time, he said to give her a doxycycline 100 mg PO for the 2100 dose. I inquired about the steroids due at 0000 and 0600; he said to just hold them for know.
[2020-01-08] MEDS: SERTRALINE HCL 50 MG TABLET PO (21:55)
[2020-01-08] MEDS: INSULIN GLARGINE (*BKC) 100 UNITS/ML 15 UNITS SUB-Q (21:55)
[2020-01-08] MEDS: ARIPiprazole 5 MG TABLET PO (21:55)
[2020-01-08] MEDS: DOXYCYCLINE HYCLATE 100 MG TABLET PO (22:00)
[2020-01-08 22:39] LABS: Glucose Point of Care 253 (65-105)
[2020-01-09] VITALS (13 sets, daily range): BP systolic 111–130; BP diastolic 53–74; PULSE 73–91; RESP 18–22; TEMP 36.8–37.2; O2SAT 91–98
[2020-01-09 07:02] LABS: Blood Urea Nitrogen 15 mg/dL (7-17); Calcium 9.1 mg/dL (8.4-10.2); Carbon Dioxide 21 mmol/L (22-30); Chloride 108 mmol/L (98-107); Estimated CRCL calculation 159 ml/min; Estimated Glomerular Filt Rate > 60; Glucose 170 mg/dL (65-105); Potassium 4.3 mmol/L (3.4-5.0); Sodium 138 mmol/L (137-145)
[2020-01-09] MEDS: ALBUTEROL SULFATE (*SP) AEROSOL 1 PUFF 2 PUFF INHALATION ×4 (08:35→21:21)
[2020-01-09 08:51] LABS: Glucose Point of Care 133 (65-105)
[2020-01-09] MEDS: IBUPROFEN 400 MG TABLET PO ×2 (08:51→16:13)
[2020-01-09 12:30] LABS: Glucose Point of Care 116 (65-105)
[2020-01-09 17:01] LABS: Hematocrit 38.1 % (37.0-47.0); Hemoglobin 12.1 g/dL (12.0-15.0); Mean Corpuscular HGB Conc 31.8 g/dl (32-36); Mean Corpuscular Hemoglobin 25.7 pg (26-34); Mean Corpuscular Volume 80.9 fl (80-100); Mean Platelet Volume 8.6 fl (7.4-10.4); Platelet Count Result 445 k/mm3 (150-375); Red Blood Count 4.71 M/mm3 (4.2-5.4); White Blood Count 22.6 K/mm3 (4.5-10.0)
[2020-01-09 17:31] LABS: Lymphocytes Absolute Manual 2.48 K/mm3 (1.1-4.5); Monocytes Absolute Manual 1.58 K/mm3 (0.1-0.90); Monocytes Percent Manual 7 % (3-9); Neutrophils Percent Manual 82 % (46-73); Total Cells Counted 100
[2020-01-09 17:32] LABS: Hypochromasia 1+ (NORMAL); Platelet Estimate Increased (Adequate)
--- NOTE | 2020-01-09 17:59 | PM.IMPN ---
Progress Note: A&P Assessment and Plan (1) Suspected 2019 novel coronavirus infection: Code(s): Z20.828 - Contact with and (suspected) exposure to other viral communicable diseases Status: Acute Assessment and Plan: Highly suspicious despite first negative test given the high inflammatory markers ( CRp LDH) and exposure. Covid x2 is negative order cxr and pulmology consult for amando am pt is on iv steroids, iv ceftriaxone and doxycycline (2) Pneumonia: Qualifiers: Laterality: bilateral Lung location: lower lobe of lung Pneumonia type: due to unspecified organism Qualified Code(s): J18.9 - Pneumonia, unspecified organism Code(s): J18.9 - Pneumonia, unspecified organism Status: Acute Assessment and Plan: Could be a viral pneumonia due to COVID 19 but there is a possibility of a bacterial PNA. Continue ceftriaxone and doxycycline. (3) Asthma: Code(s): J45.909 - Unspecified asthma, uncomplicated Status: Acute Assessment and Plan: On MDI only due to possible COVID. On steroids. (4) Hyperglycemia: Code(s): R73.9 - Hyperglycemia, unspecified Status: Acute Assessment and Plan: She is prediabetic with a Hb A1 c of 6% however she is expected to be hyperglycemic with the steroids and the underlying infection. On ISS we will add a low dose of long acting insulin since her glucose remains high. (5) Bipolar disorder, curr episode mixed, severe, w/o psychotic features: Code(s): F31.63 - Bipolar disorder, current episode mixed, severe, without psychotic features Status: Chronic Assessment and Plan: Cont home meds Subjective Date/time seen: 01/09/20 17:59 Interval history: Radha is a 24 year old female that presents to the hospital with weakness, dry cough, malaise, sore throat and myalgias for the last week. Pt works on [employer]. pt still does not feel well. still weak and tired. got in a iv line, pt has had two negative covid, wcc still high, bacterial pneumonia bilateral found on ct scan, pt has history of asthma. covid x2 is negative, pt is still in isolation. monoscreen is negative. pt complaints of tiredness and sore throat. pt has been iv rocephin and iv doxycycline for 3 days, and iv steroids, i will order a chest xray for the morning. pt is needing oxygen 2 liters continue to watch your respiratory status. Pt sees respiratory doctor in [place]. Requesting to see lung doctor Review of Systems Review of Systems: ROS unobtainable: Yes other (body aches sore throat, cough weakness sob ) Psychiatric: Psychiatric: Reports anxiety Exam Const: General: no acute distress Resp: Auscultation: wheezes Other: Not using accessory muscles to breath. Skin: General skin exam: normal color and no rashes or lesions noted Neuro: Cranial nerves: Yes Equal, round and reactive pupils present Speech: normal speech Motor exam (neuro): 5/5 motor strength present throughout and Normal motor muscle tone present throughout Sensory Exam: normal sensation Extrem: General: normal to inspection Psych: Affect: normal affect Objective Data Vital Signs Vital Signs: Vital Signs - 24 hr 01/08/20 18:00 01/08/20 20:00 01/08/20 22:00 Temperature 37.2 C 36.4 C L Pulse Rate 101 H 119 H 104 H Respiratory Rate 20 22 H Blood Pressure 138/66 125/72 Pulse Oximetry 96 89 L 01/09/20 00:00 01/09/20 02:00 01/09/20 04:00 Temperature 36.8 C Pulse Rate 85 81 77 Respiratory Rate 22 H Blood Pressure 125/53 L Pulse Oximetry 98 01/09/20 06:00 01/09/20 08:00 01/09/20 12:00 Temperature 37.1 C 36.9 C Pulse Rate 85 91 79 Respiratory Rate 22 H 18 Blood Pressure 115/57 L 130/71 Pulse Oximetry 95 91 01/09/20 16:00 Temperature Pulse Rate 79 Respiratory Rate Blood Pressure Pulse Oximetry Intake/Output Intake/Output: Intake & Output 01/06/20 01/07/20 01/08/20 01/09/20 23:59 23:59 23:59 23:59 Intake Total 90
[2020-01-09 18:20] LABS: Glucose Point of Care 121 (65-105)
[2020-01-09] MEDS: ARIPiprazole 5 MG TABLET PO (20:14)
[2020-01-09] MEDS: SERTRALINE HCL 50 MG TABLET PO (20:14)
[2020-01-09] MEDS: INSULIN GLARGINE (*BKC) 100 UNITS/ML 15 UNITS SUB-Q (20:22)
[2020-01-09] MEDS: SALINE LOCK FLUSH 10 ML IV PUSH (20:23)
[2020-01-10] VITALS (15 sets, daily range): BP systolic 97–138; BP diastolic 55–70; PULSE 62–91; RESP 18–20; TEMP 36.7–37.2; O2SAT 95–100
[2020-01-10] MEDS: SALINE LOCK FLUSH 10 ML IV PUSH ×3 (05:28→20:45)
[2020-01-10] MEDS: IBUPROFEN 400 MG TABLET PO (08:10)
[2020-01-10] MEDS: ALBUTEROL SULFATE (*SP) AEROSOL 1 PUFF 2 PUFF INHALATION ×4 (08:48→20:26)
[2020-01-10 08:56] LABS: Glucose Point of Care 77 (65-105)
[2020-01-10 09:21] LABS: Glucose Point of Care 181 (65-105)
[2020-01-10 14:28] LABS: Glucose Point of Care 102 (65-105)
[2020-01-10] MEDS: BENZOCAINE/MENTHOL (*BKC) 18 EA LOZENGE 1 LOZENGE PO (16:34)
--- NOTE | 2020-01-10 18:26 | PM.IMPN ---
Progress Note: A&P Assessment and Plan (1) Suspected 2019 novel coronavirus infection: Code(s): Z20.828 - Contact with and (suspected) exposure to other viral communicable diseases Status: Acute Assessment and Plan: Highly suspicious despite first negative test given the high inflammatory markers ( CRp LDH) and exposure. Covid x2 is negative throat lozengers ordered pt is on iv steroids, iv ceftriaxone and doxycycline (2) Pneumonia: Qualifiers: Laterality: bilateral Lung location: lower lobe of lung Pneumonia type: due to unspecified organism Qualified Code(s): J18.9 - Pneumonia, unspecified organism Code(s): J18.9 - Pneumonia, unspecified organism Status: Acute Assessment and Plan: likely bacterial PNA. Continue ceftriaxone and doxycycline. (3) Asthma: Code(s): J45.909 - Unspecified asthma, uncomplicated Status: Acute Assessment and Plan: On MDI On steroids. (4) Hyperglycemia: Code(s): R73.9 - Hyperglycemia, unspecified Status: Acute Assessment and Plan: She is prediabetic with a Hb A1 c of 6% however she is expected to be hyperglycemic with the steroids and the underlying infection. On ISS we will add a low dose of long acting insulin since her glucose remains high. (5) Bipolar disorder, curr episode mixed, severe, w/o psychotic features: Code(s): F31.63 - Bipolar disorder, current episode mixed, severe, without psychotic features Status: Chronic Assessment and Plan: Cont home meds Subjective Date/time seen: 01/10/20 18:26 Interval history: Radha is a 24 year old female that presents to the hospital with weakness, dry cough, malaise, sore throat and myalgias for the last week. Pt works on [employer]. pt still does not feel well. still weak and tired. got in a iv line, pt has had two negative covid, wcc still high, bacterial pneumonia bilateral found on ct scan, pt has history of asthma. covid x2 is negative, pt is still in isolation. monoscreen is negative. pt complaints of tiredness and sore throat. pt has been iv rocephin and iv doxycycline, and iv steroids,cxr shows no pneumonia, wcc improving. Requesting to see lung doctor, reassured pt about improvement and ordered throat lozengers for sore throat Review of Systems Review of Systems: All systems reviewed & are unremarkable except as noted in HPI and below Constitutional: Comments: sore throat. myalgia and dry cough Exam Const: General: no acute distress HENMT: Mouth: Yes other (complians of sore throat ) Extrem: General: normal to inspection Psych: Affect: normal affect Objective Data Vital Signs Vital Signs: Vital Signs - 24 hr 01/09/20 20:00 01/09/20 21:21 01/09/20 22:00 Temperature 37.2 C Pulse Rate 89 75 Respiratory Rate 20 Blood Pressure 111/53 L Pulse Oximetry 93 94 01/10/20 00:00 01/10/20 02:00 01/10/20 04:00 Temperature 37.0 C Pulse Rate 62 68 73 Respiratory Rate 20 Blood Pressure 125/63 Pulse Oximetry 95 01/10/20 06:00 01/10/20 08:00 01/10/20 08:49 Temperature 37.0 C Pulse Rate 68 76 Respiratory Rate 20 Blood Pressure 125/63 Pulse Oximetry 95 95 01/10/20 10:06 01/10/20 11:07 01/10/20 11:08 Temperature 37.2 C Pulse Rate 68 Respiratory Rate 18 Blood Pressure 97/55 L 112/60 Pulse Oximetry 98 95 01/10/20 12:00 01/10/20 14:00 Temperature 37.0 C Pulse Rate 91 67 Respiratory Rate 20 Blood Pressure 137/70 Pulse Oximetry 95 96 Intake/Output Intake/Output: Intake & Output 01/07/20 01/08/20 01/09/20 01/10/20 23:59 23:59 23:59 23:59 Intake Total 1960 3180 2690 980 Output Total 800 1100 600 500 Balance 1160 2080 2090 480 Meds/Results Medications: Active Medications Generic Name Dose Route Start Last Admin Trade Name Freq PRN Reason Stop Dose Admin Albuterol 2 puff 01/07/20 12:00 01/10/20 16:06 Proventil Hfa INHALATION 2 puff ENEDINA Almanzar
[2020-01-10 18:28] LABS: Glucose Point of Care 92 (65-105)
--- NOTE | 2020-01-10 19:55 | PM.CNPUL ---
Assessment and Plan Assessment and plan (1) Asthma: Code(s): J45.909 - Unspecified asthma, uncomplicated Status: Acute Assessment and Plan: Low peak flows, now in the yellow zone, better with bronchodilator. Normal estimated best peak flow is 432 L/min, today 280 L/min - 65%, before albuterol. Sat is 89% on room air. She has leg swelling at times in the am. PLAN: Pre and post peak flows BID Overnight ApneaLink tonight Home O2 study in the am with patient to walk a flight of stairs, which is something she does at work Cornet valve for atelectasis TID I told her she can plan to return to work on the weekend Echo for evaluation of leg swelling and intermittent increases in BP She had an episode of sepsis in 2018, had central line, critically ill, and says BP has been high at times since then. (2) Snoring: Code(s): R06.83 - Snoring Status: Acute Assessment and Plan: She has high prob for PATRIZIA; BMI 45, Mallampati IV airway, scalloped tongue; has had tonsils removed and still the airway is not visible She wakes at night at times to catch her breath. Noct polysomnogram was 2014, 5 years ago. (3) Decreased diffusion capacity: Code(s): R94.2 - Abnormal results of pulmonary function studies Status: Acute Assessment and Plan: October 2016 DLCO 67%; needs to be repeated. (4) Pneumonia: Qualifiers: Laterality: bilateral Lung location: lower lobe of lung Pneumonia type: due to unspecified organism Qualified Code(s): J18.9 - Pneumonia, unspecified organism Code(s): J18.9 - Pneumonia, unspecified organism Status: Acute Assessment and Plan: high WBC, scant infiltrates on CT in the bases; agree with antibitiocs; switch to oral in the am History of Present Illness History of Present Illness Consult date: 01/13/20 Requesting physician: Radha Zapata MD Reason for consult: asthma Chief complaint: Pneumonia Narrative: Date of service January 12, 2020 NEW CONSULT: Anabel Garcia is a 24 yo female with asthma since the age of 20 who was admitted with pneumonia and an exacerbation of asthma ER January 05, admitted January 06. She is a patient in our practice, last visit was in 08/16/2019. She is stable on Symbicort 160 and prn albuterol. 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 She says that a week and a half ago sore throat, thick nasal drainage, headaches in the back of her head, and muscle aches; was seen at Urgent Care, diagnosed with sinus infection. Symptoms continued, and she presented to the ED with more fevers, CXR was normal on admission, developed basilar atelectasis. She had high WBC 19.2K, 27.8, 22.6K with a left shift. She has not had a fever since admission, did have low temp 36.4. She has been treated with Rocephin and doxycycline, has sat of 89% on room air today. Peak flow today is 280 L/min = 65% predicted, increases to 320 L/min = 74% predicted after albuterol. She feels better since admission. This is the first admission in over ta year, and she has a night time cough once a week or less often. She also has swollen glands in her neck, and says taht a monospot was negative. Asthma triggers: post exercise, hot air, humidity, smoke, fragrance, cold air is not as much of a problem as hot weather. She has nasal symptoms analilia in the spring with pollen, and sneezes often in the spring and fall. She has 3 dogs, no cats. does not have problems being aroudn cats. *09/23/2014 - sleep study; results not available *11/04/2016 PFT; FEV1 97%, FEV1% 89%, TLC 83%, DLCO 67% Review of Systems Review of Systems: All systems reviewed & are unremarkable except as n
[2020-01-10 20:41] LABS: Glucose Point of Care 131 (65-105)
[2020-01-10] MEDS: INSULIN GLARGINE (*BKC) 100 UNITS/ML 15 UNITS SUB-Q (20:44)
[2020-01-10] MEDS: ARIPiprazole 5 MG TABLET PO (20:45)
[2020-01-10] MEDS: SERTRALINE HCL 50 MG TABLET PO (20:45)
[2020-01-11] VITALS (14 sets, daily range): BP systolic 98–134; BP diastolic 51–66; PULSE 62–93; RESP 16–18; TEMP 36.2–37.1; O2SAT 90–100
[2020-01-11] MEDS: SALINE LOCK FLUSH 10 ML IV PUSH ×3 (05:29→21:38)
[2020-01-11] MEDS: ALBUTEROL SULFATE (*SP) AEROSOL 1 PUFF 2 PUFF INHALATION ×4 (08:41→21:49)
[2020-01-11 09:09] LABS: Glucose Point of Care 80 (65-105)
[2020-01-11] MEDS: ONDANSETRON INJ 4 MG/2 ML VIAL IV PUSH (11:27)
[2020-01-11] MEDS: IBUPROFEN 400 MG TABLET PO (14:02)
--- NOTE | 2020-01-11 18:09 | PM.IMPN ---
Progress Note: A&P Assessment and Plan (1) Suspected 2019 novel coronavirus infection: Code(s): Z20.828 - Contact with and (suspected) exposure to other viral communicable diseases Status: Acute Assessment and Plan: Highly suspicious despite first negative test given the high inflammatory markers ( CRp LDH) and exposure. Covid x2 is negative pt can come out of isolation after discussion with respiratory doctor covid is not likey pt symptoms are better with IV abx pt is on iv steroids, iv ceftriaxone and doxycycline (2) Pneumonia: Qualifiers: Laterality: bilateral Lung location: lower lobe of lung Pneumonia type: due to unspecified organism Qualified Code(s): J18.9 - Pneumonia, unspecified organism Code(s): J18.9 - Pneumonia, unspecified organism Status: Acute Assessment and Plan: likely bacterial PNA. Continue ceftriaxone and doxycycline. (3) Asthma: Code(s): J45.909 - Unspecified asthma, uncomplicated Status: Acute Assessment and Plan: On MDI On steroids. (4) Hyperglycemia: Code(s): R73.9 - Hyperglycemia, unspecified Status: Acute Assessment and Plan: She is prediabetic with a Hb A1 c of 6% however she is expected to be hyperglycemic with the steroids and the underlying infection. On ISS we will add a low dose of long acting insulin since her glucose remains high. (5) Bipolar disorder, curr episode mixed, severe, w/o psychotic features: Code(s): F31.63 - Bipolar disorder, current episode mixed, severe, without psychotic features Status: Chronic Assessment and Plan: Cont home meds Subjective Date/time seen: 01/11/20 18:09 Interval history: Radha is a 24 year old female that presents to the hospital with weakness, dry cough, malaise, sore throat and myalgias for the last week. Pt works on [employer]. Pt has had two negative covid, wcc still high, bacterial pneumonia bilateral found on ct scan, pt has history of asthma. covid x2 is negative, pt is still in isolation. monoscreen is negative. pt has been on iv rocephin and iv doxycycline for 4 days, and iv steroids, cxr shows no pneumonia, wcc improving. Requesting to see lung doctor, reassured breathing better cough gone, less hoarse throat, sore throat better, explained to patient that she can come out of isolation. Review of Systems Review of Systems: All systems reviewed & are unremarkable except as noted in HPI and below Constitutional: Comments: Sore throat, hoarseness, fatigue Exam Narrative: Exam Narrative: Pt in restroom difficult to fully examine Const: General: no acute distress Neck: Neck: supple and no JVD Neuro: Motor exam (neuro): 5/5 motor strength present throughout and Normal motor muscle tone present throughout Psych: Affect: normal affect Objective Data Vital Signs Vital Signs: Vital Signs - 24 hr 01/10/20 20:00 01/10/20 20:26 01/10/20 22:00 Temperature 36.7 C Pulse Rate 78 77 Respiratory Rate 18 Blood Pressure 138/67 Pulse Oximetry 98 100 01/11/20 00:00 01/11/20 02:00 01/11/20 04:00 Temperature 36.5 C Pulse Rate 93 66 63 Respiratory Rate 18 Blood Pressure 134/64 Pulse Oximetry 100 01/11/20 06:00 01/11/20 08:00 01/11/20 08:41 Temperature 36.5 C Pulse Rate 64 62 Respiratory Rate 18 Blood Pressure 112/62 Pulse Oximetry 100 99 01/11/20 10:00 01/11/20 12:00 01/11/20 14:00 Temperature 36.2 C L 37.1 C Pulse Rate 84 79 76 Respiratory Rate 16 18 Blood Pressure 109/51 L 117/52 L Pulse Oximetry 98 97 01/11/20 16:00 Temperature Pulse Rate 84 Respiratory Rate Blood Pressure Pulse Oximetry Intake/Output Intake/Output: Intake & Output 01/08/20 01/09/20 01/10/20 01/11/20 23:59 23:59 23:59 23:59 Intake Total 3180 2690 2270 1910 Output Total 2256 280 5272 1000 Balance 2079 2089 970 910 Meds/Results Medications: Active Medications Generic Name Dose R
[2020-01-11 18:47] LABS: Glucose Point of Care 97 (65-105)
[2020-01-11 21:36] LABS: Glucose Point of Care 148 (65-105)
[2020-01-11] MEDS: ARIPiprazole 5 MG TABLET PO (21:38)
[2020-01-11] MEDS: INSULIN GLARGINE (*BKC) 100 UNITS/ML 15 UNITS SUB-Q (21:38)
[2020-01-11] MEDS: SERTRALINE HCL 50 MG TABLET PO (21:38)
[2020-01-12] VITALS (14 sets, daily range): BP systolic 90–132; BP diastolic 50–69; PULSE 76–129; RESP 16–22; TEMP 36.3–36.9; O2SAT 89–97
[2020-01-12] MEDS: SALINE LOCK FLUSH 10 ML IV PUSH ×3 (05:29→21:17)
[2020-01-12] MEDS: IBUPROFEN 400 MG TABLET PO (08:24)
[2020-01-12] MEDS: ALBUTEROL SULFATE (*SP) AEROSOL 1 PUFF 2 PUFF INHALATION ×4 (08:27→19:41)
[2020-01-12 08:30] LABS: Glucose Point of Care 89 (65-105)
[2020-01-12 08:30] LABS: Glucose Point of Care 90 (65-105)
[2020-01-12 12:59] LABS: Glucose Point of Care 97 (65-105)
--- NOTE | 2020-01-12 15:52 | PM.IMPN ---
Progress Note: A&P Assessment and Plan (1) Suspected 2019 novel coronavirus infection: Code(s): Z20.828 - Contact with and (suspected) exposure to other viral communicable diseases Status: Acute Assessment and Plan: pt can come out of isolation after discussion with respiratory doctor covid is not likey pt symptoms are better with IV abx pt is on iv steroids, iv ceftriaxone and doxycycline (2) Pneumonia: Qualifiers: Laterality: bilateral Lung location: lower lobe of lung Pneumonia type: due to unspecified organism Qualified Code(s): J18.9 - Pneumonia, unspecified organism Code(s): J18.9 - Pneumonia, unspecified organism Status: Acute Assessment and Plan: likely bacterial PNA. Continue ceftriaxone and doxycycline. (3) Asthma: Code(s): J45.909 - Unspecified asthma, uncomplicated Status: Acute Assessment and Plan: On MDI On steroids. (4) Hyperglycemia: Code(s): R73.9 - Hyperglycemia, unspecified Status: Acute Assessment and Plan: She is prediabetic with a Hb A1 c of 6% however she is expected to be hyperglycemic with the steroids and the underlying infection. On ISS we will add a low dose of long acting insulin since her glucose remains high. (5) Bipolar disorder, curr episode mixed, severe, w/o psychotic features: Code(s): F31.63 - Bipolar disorder, current episode mixed, severe, without psychotic features Status: Chronic Assessment and Plan: Cont home meds Subjective Date/time seen: 01/12/20 15:52 Interval history: Radha is a 24 year old female that presents to the hospital with weakness, dry cough, malaise, sore throat and myalgias for the last week. Pt works on [employer]. pt still does not feel well. still weak and tired. got in a iv line, pt has had two negative covid, wcc still high, bacterial pneumonia bilateral found on ct scan, pt has history of asthma. covid x2 is negative, pt is still in isolation. monoscreen is negative. pt feels better pt can come out of isolation. mild sore throat only no cough or myalgia Review of Systems Review of Systems: All systems reviewed & are unremarkable except as noted in HPI and below Exam Const: General: comfortable and no acute distress Resp: Other: Not using accessory muscles to breath. Cardio: Rate: regular rate Rhythm: regular rhythm GI: Auscultation: normal bowel sounds Skin: General skin exam: normal color and no rashes or lesions noted Neuro: Cranial nerves: Yes Equal, round and reactive pupils present Speech: normal speech Motor exam (neuro): 5/5 motor strength present throughout and Normal motor muscle tone present throughout Sensory Exam: normal sensation Extrem: General: normal to inspection Psych: Affect: normal affect Objective Data Vital Signs Vital Signs: Vital Signs - 24 hr 01/11/20 16:00 01/11/20 18:00 01/11/20 20:00 Temperature 36.9 C Pulse Rate 84 79 83 Respiratory Rate 16 Blood Pressure 98/66 L Pulse Oximetry 97 01/11/20 21:53 01/11/20 22:00 01/12/20 00:00 Temperature 36.6 C Pulse Rate 88 88 83 Respiratory Rate 18 Blood Pressure 105/60 Pulse Oximetry 90 96 01/12/20 02:00 01/12/20 04:00 01/12/20 05:30 Temperature 36.6 C 36.8 C Pulse Rate 83 78 77 Respiratory Rate 18 22 H Blood Pressure 103/55 L 104/69 Pulse Oximetry 96 95 01/12/20 08:00 01/12/20 08:31 01/12/20 10:00 Temperature 36.9 C Pulse Rate 76 89 Respiratory Rate 16 Blood Pressure 90/60 L Pulse Oximetry 93 95 97 01/12/20 12:00 01/12/20 14:00 Temperature 36.7 C Pulse Rate 85 89 Respiratory Rate 16 Blood Pressure 99/50 L Pulse Oximetry 97 Intake/Output Intake/Output: Intake & Output 01/09/20 01/10/20 01/11/20 01/12/20 23:59 23:59 23:59 23:59 Intake Total 2690 2270 2440 950 Output Total 600 1300 1000 1000 Balance 2090 970 1440 -50 Meds/Results Medications: Active Medications Generic Name
[2020-01-12 17:27] LABS: Glucose Point of Care 144 (65-105)
[2020-01-12] MEDS: ARIPiprazole 5 MG TABLET PO (20:58)
[2020-01-12] MEDS: SERTRALINE HCL 50 MG TABLET PO (20:58)
[2020-01-12] MEDS: INSULIN GLARGINE (*BKC) 100 UNITS/ML 15 UNITS SUB-Q (20:58)
[2020-01-12 21:37] LABS: Glucose Point of Care 124 (65-105)
[2020-01-13] VITALS (11 sets, daily range): BP systolic 101–124; BP diastolic 58–59; PULSE 74–115; RESP 16–18; TEMP 36.3–37.1; O2SAT 90–99
[2020-01-13 01:06] LABS: Glucose Point of Care 106 (65-105)
[2020-01-13 05:38] LABS: Glucose Point of Care 105 (65-105)
[2020-01-13] MEDS: SALINE LOCK FLUSH 10 ML IV PUSH ×2 (05:48→14:30)
--- NOTE | 2020-01-13 08:00 | ECHO_ITS ---
Patient Info Name: Anabel Garcia Age: 24 years : 1995 Gender: Female Ht: 65 in Wt: 272 lbs BSA: 2.45 m2 HR: 87 bpm BP: 101 / 58 mmHg Technical Quality: Good Exam Date: 01/13/2020 10:26 AM Exam Location: [facility] Patient Status: Inpatient Admit Date: 01/07/2020 Staff Ordering Physician: Charlene Ingram MD Ekg/Ecg Technician: Vicente Kendrick, OLIVER, RT Attending Provider: Israel Hernandez MD Referring Physician: Juan Jose ENCARNACION; Exam Type: CA echo doppler color flow Study Info Indications R06.02 - Shortness of breath Complete two-dimensional, color flow and Doppler transthoracic echocardiogram is performed. Summary 1. Left ventricular systolic function is normal, estimated at 55-60%. 2. There is mildly increased left ventricular wall thickness. 3. Right ventricular chamber dimension is mildly enlarged. 4. Right atrial chamber dimension is mildly enlarged. Left Ventricle Left ventricular chamber dimension is normal. Left ventricular systolic function is normal, estimated at 55-60%. There is mildly increased left ventricular wall thickness. Left ventricular septal wall motion is normal. The left ventricular diastolic function is normal. Right Ventricle Right ventricular chamber dimension is mildly enlarged. Right ventricular systolic function is normal. Left Atria Left atrial chamber dimension is normal. Right Atria Right atrial chamber dimension is mildly enlarged. Atrial Septum Intact interatrial septum visualized by color flow imaging. Aortic Valve The aortic valve is trileaflet. There is no aortic valve sclerosis. There is no aortic valve stenosis. There is no aortic valve regurgitation. Pulmonic Valve The pulmonic valve is normal. There is no pulmonic valve stenosis. There is no pulmonic regurgitation. Mitral Valve The mitral valve has normal leaflets. There is no mitral valve stenosis. There is no mitral valve regurgitation. Tricuspid Valve The tricuspid valve leaflets are normal. There is no significant tricuspid valve stenosis. There is no tricuspid valve regurgitation. Pericardium/Pleural The pericardium appears normal. There is trivial pericardial effusion. Inferior Vena Cava Normal inferior vena cava with <50% collapse upon inspiration consistent with elevated right atrial pressure, 10 mmHg. Aorta The aortic root size at the sinus of Valsalva is normal. The prox ascending aorta size is normal. Left Ventricular Outflow Tract Name Value Normal LVOT 2D LVOT Diameter 1.9 cm LVOT Doppler LVOT Peak Gradient 4 mmHg LVOT Mean Gradient 2 mmHg LVOT VTI 17 cm LVOT VTI/AV VTI Ratio 1.0 LVOT Stroke Volume 49 ml LVOT CO 4.6 l/min LVOT CI 1.9 l/min/m2 Mitral Valve Name Value Normal
[2020-01-13] MEDS: ALBUTEROL SULFATE (*SP) AEROSOL 1 PUFF 2 PUFF INHALATION ×3 (08:10→16:13)
[2020-01-13 10:57] LABS: Hematocrit 40.6 % (37.0-47.0); Hemoglobin 12.8 g/dL (12.0-15.0); Mean Corpuscular HGB Conc 31.5 g/dl (32-36); Mean Corpuscular Hemoglobin 25.7 pg (26-34); Mean Corpuscular Volume 81.4 fl (80-100); Mean Platelet Volume 8.5 fl (7.4-10.4); Platelet Count Result 390 k/mm3 (150-375); Red Blood Count 4.99 M/mm3 (4.2-5.4); Red Cell Distribution Width 13.2 % (11.5-14.5)
[2020-01-13 11:17] LABS: Blood Urea Nitrogen 13 mg/dL (7-17); Calcium 9.1 mg/dL (8.4-10.2); Carbon Dioxide 28 mmol/L (22-30); Chloride 99 mmol/L (98-107); Estimated CRCL calculation 122 ml/min; Estimated Glomerular Filt Rate > 60; Glucose 108 mg/dL (65-105); Potassium 3.8 mmol/L (3.4-5.0); Sodium 135 mmol/L (137-145)
[2020-01-13 12:15] LABS: Glucose Point of Care 89 (65-105)
--- NOTE | 2020-01-13 12:43 | PCRCNOTE ---
HOME O2 EVAL COMPLETE, NO REQUIREMENTS
--- NOTE | 2020-01-13 14:34 | PM.IMPN ---
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 (2) Pneumonia: Qualifiers: Laterality: bilateral Lung location: lower lobe of lung Pneumonia type: due to unspecified organism Qualified Code(s): J18.9 - Pneumonia, unspecified organism Code(s): J18.9 - Pneumonia, unspecified organism Status: Acute Assessment and Plan: likely bacterial PNA. Continue ceftriaxone and doxycycline. (3) Asthma: Code(s): J45.909 - Unspecified asthma, uncomplicated Status: Acute Assessment and Plan: On MDI On steroids. (4) Hyperglycemia: Code(s): R73.9 - Hyperglycemia, unspecified Status: Acute Assessment and Plan: She is prediabetic with a Hb A1 c of 6% however she is expected to be hyperglycemic with the steroids and the underlying infection. On ISS we will add a low dose of long acting insulin since her glucose remains high. 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 Review of Systems Review of Systems: All systems reviewed & are unremarkable except as noted in HPI and below Exam Narrative: Exam Narrative: morbidly obese Const: General: comfortable and no acute distress HENMT: General nose exam: Normal nares present Mouth: Yes moist mucous membranes Eyes: General: appearance normal, both eyes and all related structures Sclera: sclerae normal Neck: Neck: supple Resp: Other: bilateral fair air entry with minimal rhonchi Cardio: Rate: regular rate Rhythm: regular rhythm GI: Auscultation: normal bowel sounds Skin: General skin exam: normal color Neuro: Speech: normal speech Sensory Exam: normal sensation Extrem: General: normal to inspection Psych: Affect: Anxious affect present Objective Data Vital Signs Vital Signs: Vital Signs - 24 hr 01/12/20 16:00 01/12/20 19:45 01/12/20 20:00 Temperature Pulse Rate 85 129 H 105 H Respiratory Rate Blood Pressure Pulse Oximetry 89 L 01/12/20 21:18 01/12/20 22:00 01/13/20 00:00 Temperature 97.3 F L Pulse Rate 109 H 85 Respiratory Rate 16 Blood Pressure 132/62 Pulse Oximetry 97 96 01/13/20 04:00 01/13/20 06:00 01/13/20 08:00 Temperature 97.4 F L Pulse Rate 77 77 83 Respiratory Rate 16 Blood Pressure 101/58 L Pulse Oximetry 97 01/13/20 08:17 01/13/20 09:45 01/13/20 09:50 Temperature Pulse R
--- NOTE | 2020-01-13 15:10 | PM.PNPUL ---
Progress Note: A&P Assessment and Plan (1) Asthma: Code(s): J45.909 - Unspecified asthma, uncomplicated Status: Acute Assessment and Plan: Low peak flows, higher yellow zone, now 325 L/min pre-bronchodilator; better with bronchodilator. PEAK FLOWS 345 - 432 is GREEN 217-344 YELLOW 216 or below RED Normal estimated best peak flow is 432 L/min, today 325 L/min - 75%, before albuterol. Sat is96% on room air. She has leg swelling at times in the am. PLAN: OK to go home today, I will follow up in 2 weekse in office. Plan on PFTs in 6 weeks. Does not need O2 with exertion. Negative ApneaLink. She has the Cornet valve nad can use this to assist with improving atelectasis. Home O2 study in the am with patient to walk a flight of stairs, which is something she does at work She can plan to return to work on the weekend Echo shows mild thickening of the LV wall, so her BP needs to be watched. She had an episode of sepsis in 2018, had central line, critically ill, and says BP has been high at times since then. (2) Snoring: Code(s): R06.83 - Snoring Status: Acute Assessment and Plan: Apnea Link was negative, however she was on O2 1 L/min. This might have decreased the sensitivity of the test. She has suspicion for PATRIZIA; BMI 45, Mallampati IV airway, scalloped tongue; has had tonsils removed and still the airway is not visible She wakes at night at times to catch her breath. Noct polysomnogram was 2014, 5 years ago. (3) Decreased diffusion capacity: Code(s): R94.2 - Abnormal results of pulmonary function studies Status: Acute Assessment and Plan: October 2016 DLCO 67%; needs to be repeated. (4) Pneumonia: Qualifiers: Laterality: bilateral Lung location: lower lobe of lung Pneumonia type: due to unspecified organism Qualified Code(s): J18.9 - Pneumonia, unspecified organism Code(s): J18.9 - Pneumonia, unspecified organism Status: Acute Assessment and Plan: high WBC, scant infiltrates on CT in the bases; agree with antibitiocs; discharge to oral to go home. Subjective Date/time seen: 15:10 This 24 yo female is seen in follow up for asthma exacerbation and atelectasis/infiltrates on chest CT; possible pneumonia. echo today showed : 1. Left ventricular systolic function is normal, estimated at 55-60%. 2. There is mildly increased left ventricular wall thickness. 3. Right ventricular chamber dimension is mildly enlarged. 4. Right atrial chamber dimension is mildly enlarged. *Peak Flow pre-treatment was 325 L/min, improved, upper YELLOW ZONE, max predicted 432 L/min; 345 - 432 is GREEN 217-344 YELLOW 216 or below RED * Apnea Link was negative * Home O2 evaluation showed no need for home O2. * She is stable for discharge today, and I will follow up after discharge for asthma management. Review of Systems Review of Systems: All systems reviewed & are unremarkable except as noted in HPI and below (weight has been going up recently; yo yo up and down) Exam Const: General: no acute distress (on RA, sat 89%) HENMT: Head: normal to inspection Ears: hearing grossly normal bilaterally General nose exam: Normal external nose present and Normal nares present Face and sinus: normal facial exam Mouth: Yes Normal oral and palatal mucosa present Teeth and gingiva: dentition normal Throat: posterior oropharynx abnormal (Mallampati IV, scalloped tongue) Eyes: General: appearance normal, both eyes and all related structures Neck: Lymphatic: lymphadenopathy (mild enlargement and tenderness of anterior lou
--- NOTE | 2020-01-13 16:33 | PM.DS ---
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 (2) Pneumonia: Qualifiers: Laterality: bilateral Lung location: lower lobe of lung Pneumonia type: due to unspecified organism Qualified Code(s): J18.9 - Pneumonia, unspecified organism Code(s): J18.9 - Pneumonia, unspecified organism Status: Acute Assessment and Plan: likely bacterial PNA. Continue ceftriaxone and doxycycline. (3) Asthma: Code(s): J45.909 - Unspecified asthma, uncomplicated Status: Acute Assessment and Plan: On MDI On steroids. (4) Hyperglycemia: Code(s): R73.9 - Hyperglycemia, unspecified Status: Acute Assessment and Plan: She is prediabetic with a Hb A1 c of 6% however she is expected to be hyperglycemic with the steroids and the underlying infection. On ISS we will add a low dose of long acting insulin since her glucose remains high. (5) Bipolar disorder, curr episode mixed, severe, w/o psychotic features: Code(s): F31.63 - Bipolar disorder, current episode mixed, severe, without psychotic features Status: Chronic Assessment and Plan: Cont home meds DS: Summary Hospital Course Reason for hospitalization: Chief complaint: Pneumonia Narrative: Anabel Garcia is a 24 year old female that presentes to the hospital with weakness, dry cough, malaise , sore throat and myalgias for the last week. She also reports SOB but no chest pain. She has been having diarrhea but no abdominal pain. She works at a [employer] and she states that some of the residents there had been diagnosed with COID 19. 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 today patient is seen by Dr. Ingram patient is clinically stable and okay to discharge. Status at Discharge Functional status at discharge: independent ambulation Overall status at discharge: patient is back to baseline Time Spent with Patient Time attestation: Total time spent providing and/or coordinating discharge services: Patient was seen and examined at the time of the discharge Condition at discharge is stable Code status: Full code. Time spent preparing discharge summary, discharge medications, discussing discharge planning with case management specialist and patient is 35 minutes. Time spent: Greater than 30 minutes Exam Narrative: Exam Narrative: morbidly obese Const: General: comfortable and no acute distress HENMT: General nose exam: Normal nares present Mouth: Yes moist mucous membran
== END 2020-01-13 17:31 | disposition home or self-care (01) | DRG 139 ==
LOC: ANHED 17:32 → ANH3MEDSUR 18:14
PROVIDERS: Hospitalist; Physician Assistant; Admitting Provider Family Medicine; Emergency Provider Emergency Medicine; PCP Nurse Practitioner Family; Visit Provider Family Medicine
DX: J18.9 Pneumonia, unspecified organism (principal); J45.909 Unspecified asthma, uncomplicated; F31.9 Bipolar disorder, unspecified; G47.33 Obstructive sleep apnea (adult) (pediatric); Z20.828 Contact with and (suspected) exposure to other viral communicable diseases; R73.9 Hyperglycemia, unspecified
CPT/HCPCS: 36415; 36569; 71045; 71260; 74177; 80048; 80053; 81003; 81025; 82728; 83036; 83605; 83615; 85025; 85027; 86140; 86308; 87040; 87081; 87635; 87880; 93306; 94618; 94640; 94667; 94668; 94762; 96365; 96366; 96367; 96368; 99285; A9270; C9803; G0378; G0379; J0131; J0456; J0696; J1815; J2405; J2930; J7040; Q9967; U0003

== ENCOUNTER 2020-01-19 17:25 | Emergency (ER) | payer BC, SELFPAY ==
--- NOTE | ~2020-01-19 | CT_ITS ---
EXAMINATION: CT brain wo con INDICATION: Head injury COMPARISON: 03/01/2016 TECHNIQUE: Standard unenhanced head CT. The dose-length product (DLP) was 605.33 mGy-cm. The mA was a djusted according to patient size. Iterative reconstruction technique was employed. FINDINGS: There is no intracranial hemorrhage, acute infarction, or abnormal mass lesion. The ventric les are normal. There is no abnormal mass effect or midline shift. The sanders-white matter differentiat ion is normal. The basal cisterns are patent. The orbits are normal. The paranasal sinuses, mastoids and calvarium are normal. IMPRESSION: 1. No acute intracranial abnormality. Reviewed, dictated and finalized at location A.
--- NOTE | ~2020-01-19 | CT_ITS ---
EXAMINATION: CT cervical spine wo con DATE: 01/19/2020 18:44 INDICATION: Neck pain TECHNIQUE: Computed tomography (CT) of the cervical spine was performed without intravenous contrast. The dose-length product (DLP) was 542.73 mGy-cm. Automated exposure control and iterative reconstruc tion technique were employed. COMPARISON: 03/01/2016 FINDINGS: There is no fracture, dislocation, or subluxation. The vertebral body heights, alignment, a nd intervertebral disc spaces are normal. The paravertebral soft tissues are unremarkable. The odonto id is intact. IMPRESSION: 1. No acute osseous abnormality. Reviewed, dictated and finalized at location A.
--- NOTE | ~2020-01-19 | XR_ITS ---
EXAMINATION: XR knee RT 3V DATE: 01/19/2020 19:02 INDICATION: Right knee pain TECHNIQUE: Three views of the right knee were obtained. COMPARISON: 03/01/2016 FINDINGS: Alignment is normal. No fracture or osteochondral lesion. Joint spaces are normal with no e rosions. No joint effusion/synovitis. Soft tissues are unremarkable. IMPRESSION: 1. No acute osseous abnormality. Reviewed, dictated and finalized at location A.
--- NOTE | ~2020-01-19 | XR_ITS ---
EXAMINATION: XR chest 2V DATE: 01/19/2020 19:02 INDICATION: Cough TECHNIQUE: PA and lateral views of the chest are obtained. COMPARISON: 01/10/2020 FINDINGS: The lungs are free of acute opacities. There is no pleural effusion or pneumothorax. The ca rdiomediastinal silhouette is normal. The visualized bones and soft tissues are unremarkable. IMPRESSION: 1. No acute cardiopulmonary abnormality. Reviewed, dictated and finalized at location A.
--- NOTE | ~2020-01-19 | XR_ITS ---
EXAMINATION: XR knee LT 3V DATE: 01/19/2020 19:02 INDICATION: Left knee pain TECHNIQUE: Three views of the left knee were obtained. COMPARISON: 03/07/2018 FINDINGS: Alignment is normal. No fracture or osteochondral lesion. Joint spaces are normal with no e rosions. No joint effusion/synovitis. Soft tissues are unremarkable. IMPRESSION: 1. No acute osseous abnormality. Reviewed, dictated and finalized at location A.
[2020-01-19 17:27] VITALS: BP 150/100; PULSE 102; RESP 18; TEMP 37.1; O2SAT 97
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
[2020-01-19] MEDS: ACETAMINOPHEN 500 MG TABLET 1000 MG PO (18:29)
[2020-01-19] MEDS: diazePAM 5 MG TABLET PO (18:29)
--- NOTE | 2020-01-19 19:27 | PC.NURSE ---
assumed care of pt at this time, received report from jamil ziegler.
[2020-01-19 20:03] VITALS: BP 142/90; PULSE 94; RESP 16; O2SAT 99
== END 2020-01-19 20:04 | disposition home or self-care (01) ==
PROVIDERS: Emergency Provider General Practice; PCP Nurse Practitioner Family
DX: S09.90XA Unspecified injury of head, initial encounter (principal); S16.1XXA Strain of muscle, fascia and tendon at neck level, initial encounter; S20.219A Contusion of unspecified front wall of thorax, initial encounter; M25.562 Pain in left knee; M25.561 Pain in right knee; F31.9 Bipolar disorder, unspecified; J45.909 Unspecified asthma, uncomplicated; Z87.440 Personal history of urinary (tract) infections; E28.2 Polycystic ovarian syndrome; Z87.891 Personal history of nicotine dependence; V49.40XA Driver injured in collision with unspecified motor vehicles in traffic accident, initial encounter
CPT/HCPCS: 70450; 71046; 72125; 73562; 99284; A9270; L0140

== ENCOUNTER 2020-02-20 14:05 | Emergency (ER) | payer BC, SELFPAY ==
--- NOTE | ~2020-02-20 | XR_ITS ---
EXAMINATION: XR chest 1V portable DATE: 02/20/2020 14:38 INDICATION: Shortness of breath. TECHNIQUE: A single frontal view of the chest was obtained. COMPARISON: Chest 2 views 01/19/2020, chest CT 01/06/2020 FINDINGS: The chest demonstrates clear lungs without pneumonia, pleural effusion, or pneumothorax. Th e heart size is normal. IMPRESSION: 1. No acute cardiopulmonary disease. Reviewed, dictated and finalized at location B.
[2020-02-20 14:10] VITALS: BP 135/75; PULSE 90; RESP 16; TEMP 36.9; O2SAT 99
--- NOTE | 2020-02-20 14:21 | ED.GENADULT ---
HPI - General Adult General Chief complaint: Upper Respiratory Infection Stated complaint: abd pain/st/body aches/fever Time Seen by Provider: 02/20/20 14:07 Source: patient Mode of arrival: ambulatory Limitations: no limitations History of Present Illness HPI narrative: Patient is a 24-year-old female who presents to emergency department for evaluation of upper respiratory symptoms that have been present for 5 days patient notes congestion rhinorrhea sore throat diarrhea and dyspnea. Patient on arrival to emergency department is resting comfortably in the room in no distress patient lives on campus at [employer] patient is been attempting [id number] medications with minimal improvement Related Data Home Medications Medication Instructions Recorded Confirmed aripiprazole [Abilify] 5 mg PO HS 07/30/19 01/06/20 hydroxyzine HCl 25 mg PO HS PRN 07/30/19 01/06/20 sertraline [Zoloft] 50 mg PO HS 07/30/19 01/06/20 Allergies Allergy/AdvReac Type Severity Reaction Status Date / Time mushroom Allergy Unknown Unknown Verified 01/19/20 17:31 Review of Systems Review of Systems: All systems reviewed & are unremarkable except as noted in HPI and below PMFSH Social History Social History Years smoked: 3 Smoking status: Never smoker Tobacco type: cigarettes Second hand tobacco smoke exposure: No Smoking end date: 02/24/18 Alcohol intake: never Substance use: never Gender identity (if verbalized by the patient): Female Spiritual care concerns: No Exam Narrative: Exam Narrative: GENERAL: Well-appearing, obese, and in no acute distress. HEAD: Normocephalic, atraumatic. EYES: PERRLA and EOMI. ENT: Nares clear, no rhinorrhea or epistaxis. Mucous membranes moist. Oropharynx without tonsillar hypertrophy exudate or other lesions. NECK: Supple. No adenopathy or masses. CHEST: Clear to auscultation. No respiratory distress. No wheezes rales or rhonchi HEART: Regular rate and rhythm. No murmur heard. Normal peripheral pulses. EXTREMITIES: Normal range of motion. No edema. SKIN: Warm, dry, no rash. NEURO: No focal deficits. Alert and oriented x3. PSYCH: Normal mood and affect. Course Course Emergency Course: Patient in the room in no distress was hydrated given medications afebrile nontoxic-appearing felt appropriate for outpatient reevaluation hemodynamically stable no hypoxemia no pneumonia seen on exam tested for COVID patient will have to do self quarantine until she receives her results will be symptomatically treated and is felt appropriate for outpatient reevaluation Vital Signs Vital signs: Vital Signs Temperature 98.4 F 02/20/20 14:10 Pulse Rate 90 02/20/20 14:10 Respiratory Rate 16 02/20/20 14:10 Blood Pressure 135/75 02/20/20 14:10 Pulse Oximetry 99 02/20/20 14:10 Temperature 98.4 F 02/20/20 14:10 Pulse Rate 77 02/20/20 15:14 Respiratory Rate 19 02/20/20 15:14 Blood Pressure 119/66 02/20/20 15:14 Pulse Oximetry 99 02/20/20 15:14 Medical Decision Making MDM Narrative Medical decision making narrative: Patient with likely viral syndrome afebrile nontoxic-appearing felt appropriate for outpatient reevaluation medicated in the emergency department tested for COVID felt appropriate for outpatient reevaluation Vital Signs Vital Signs: Vital Signs Temperature 98.4 F 02/20/20 14:10 Pulse Rate 90 02/20/20 14:10 Respiratory Rate 16 02/20/20 14:10 Blood Pressure 135/75 02/20/20 14:10 Pulse Oximetry 99 02/20/20 14:10 Temperature 98.4 F 02/20/20 14:10 Pulse Rate 77 02/20/20 15:14 Respiratory Rate 19 02/20/20 15:14 Blood Pressure 119/66 02/20/20 15:14 Pulse Oximetry 99 02/20/20 15:14 Lab Data Result diagrams: 02/20/20 14:51 02/20/20 14:51 Labs: Lab Results 02/20/20 02/20/20 02/20/20 Range/Units 14:51 14:51 14:51 WBC 10.4 H (
[2020-02-20] MEDS: SODIUM CHLORIDE 0.9% IV 1,000 ML 999 ML IV CONT (14:41)
[2020-02-20] MEDS: FAMOTIDINE 20 MG/2 ML VIAL IV PUSH (14:41)
[2020-02-20 14:57] LABS: Basophils Percent Auto 0.3 % (0.2-1.2); Eosinophils Absolute Auto 0.1 K/mm3 (0-0.3); Eosinophils Percent Auto 1.1 % (0-4.4); Hematocrit 37.1 % (37.0-47.0); Immature Granulocyte Absolute 0.04 K/mm3 (0.00-0.031); Immature Granulocyte Percent A 0.4 % (0-0.5); Lymphocytes Absolute Auto 1.74 K/mm3 (0.9-3.2); Lymphocytes Percent Auto 16.7 % (18.3-44.2); Mean Corpuscular HGB Conc 32.3 g/dl (32-36); Mean Corpuscular Hemoglobin 26.2 pg (26-34); Mean Platelet Volume 9.4 fl (7.4-10.4); Monocytes Absolute Auto 0.6 K/mm3 (0.1-0.6); Monocytes Percent Auto 5.4 % (2.6-8.5); Neutrophils Absolute Auto 7.9 K/mm3 (1.3-6.7); Neutrophils Percent Auto 76.1 % (45.5-73.1); Platelet Count Result 303 k/mm3 (150-375); Red Blood Count 4.58 M/mm3 (4.2-5.4); Red Cell Distribution Width 14.1 % (11.5-14.5); White Blood Count 10.4 K/mm3 (4.5-10.0)
--- NOTE | 2020-02-20 14:59 | PC.NURSE ---
labs sent as collected and pt swabbed for covid.
[2020-02-20 15:13] LABS: Alanine Aminotransferase 18 U/L (4-35); Albumin Level 3.8 g/dL (3.5-5.1); Alkaline Phosphatase 67 U/L (38-126); Anion Gap 10 mmol/L (8-16); Aspartate Amino Transferase 19 U/L (14-36); Bilirubin,Total 0.1 mg/dL (0.2-1.3); Blood Urea Nitrogen 10 mg/dL (7-17); CRP 2.7 mg/dL (<1.0); Calcium 8.8 mg/dL (8.4-10.2); Carbon Dioxide 23 mmol/L (22-30); Chloride 103 mmol/L (98-107); Estimated CRCL calculation 159 ml/min; Estimated Glomerular Filt Rate > 60; Glucose 100 mg/dL (65-105); Sodium 136 mmol/L (137-145)
[2020-02-20 15:14] VITALS: BP 119/66; PULSE 77; RESP 19; O2SAT 99
[2020-02-20 15:45] VITALS: BP 111/78; PULSE 88; RESP 18; O2SAT 98
[2020-02-21 00:41] LABS: SARS-CoV-2 RNA PCR Negative
== END 2020-02-20 15:48 | disposition home or self-care (01) ==
PROVIDERS: Emergency Medicine Emergency Medical Services; Emergency Provider Emergency Medicine; PCP Nurse Practitioner Family
DX: J06.9 Acute upper respiratory infection, unspecified (principal); Z20.828 Contact with and (suspected) exposure to other viral communicable diseases; Z87.891 Personal history of nicotine dependence
CPT/HCPCS: 36415; 71045; 80053; 85025; 86140; 87635; 96361; 96374; 96375; 99284; C9803; J0131; J7030; U0003

== ENCOUNTER 2020-04-07 12:28 | Emergency (ER) | payer BC, SELFPAY ==
[2020-04-07 12:29] VITALS: BP 143/93; PULSE 95; RESP 20; TEMP 35.9; O2SAT 100
[2020-04-07 12:41] LABS: Basophils Percent Auto 0.2 % (0.2-1.2); Eosinophils Absolute Auto 0.1 K/mm3 (0-0.3); Eosinophils Percent Auto 0.5 % (0-4.4); Hematocrit 42.4 % (37.0-47.0); Hemoglobin 13.7 g/dL (12.0-15.0); Immature Granulocyte Absolute 0.03 K/mm3 (0.00-0.031); Immature Granulocyte Percent A 0.3 % (0-0.5); Lymphocytes Absolute Auto 1.98 K/mm3 (0.9-3.2); Mean Corpuscular HGB Conc 32.3 g/dl (32-36); Mean Corpuscular Hemoglobin 26.8 pg (26-34); Mean Platelet Volume 9.3 fl (7.4-10.4); Monocytes Absolute Auto 0.3 K/mm3 (0.1-0.6); Neutrophils Absolute Auto 8.6 K/mm3 (1.3-6.7); Platelet Count Result 363 k/mm3 (150-375); Red Blood Count 5.11 M/mm3 (4.2-5.4); Red Cell Distribution Width 13.2 % (11.5-14.5)
[2020-04-07 12:53] LABS: Anion Gap 11 mmol/L (8-16); Blood Urea Nitrogen 11 mg/dL (7-17); Calcium 9.4 mg/dL (8.4-10.2); Carbon Dioxide 24 mmol/L (22-30); Chloride 104 mmol/L (98-107); Estimated Glomerular Filt Rate > 60; Glucose 146 mg/dL (65-105); Sodium 139 mmol/L (137-145)
[2020-04-07 13:13] LABS: Add Urine Microscopic? YES; Appearance Urine Cloudy (Clear); Bacteria Urine Trace /hpf; Bilirubin Urine Negative (Negative); Blood Urine 1+ (Negative); Color Urine Yellow (Yellow); Glucose Urine UA Negative (Negative); Ketones Urine Negative (Negative); Leukocyte Esterase Ur Negative LEU/UL (Negative); Mucus Urine Rare /lpf; Nitrate Urine Negative (Negative); Protein Urine Negative (Negative); RBC Urine 0-2 /hpf (0-2); Specific Grav Ur 1.017 (1.001-1.035); Squamous Epithelial Cell Urine Many /hpf (Few); Urobilinogen Urine Negative mg/dL (<2.0); WBC Urine 0-3 /hpf
--- NOTE | 2020-04-07 13:58 | ED.ABDPAIN ---
HPI - Abdominal Pain General Chief Complaint: Urogenital-Female Stated Complaint: flank pain Time Seen by Provider: 04/07/20 13:40 Source: patient Mode of arrival: ambulatory Limitations: no limitations History of Present Illness HPI narrative: Patient is a 24-year-old female who presents to emergency department for evaluation of pain across the lower lumbar region that is worse with activity and movement for the last 3 days patient notes history of frequent urinary tract infections and was concerned for possible UTI patient on arrival to emergency department is in the room in no distress noting that she has taken ibuprofen with improvement denies injury or trauma Related Data Home Medications Medication Instructions Recorded Confirmed aripiprazole [Abilify] 5 mg PO HS 07/30/19 01/06/20 hydroxyzine HCl 25 mg PO HS PRN 07/30/19 01/06/20 sertraline [Zoloft] 50 mg PO HS 07/30/19 01/06/20 Allergies Allergy/AdvReac Type Severity Reaction Status Date / Time mushroom Allergy Unknown Unknown Verified 04/07/20 12:32 Review of Systems Review of Systems: All systems reviewed & are unremarkable except as noted in HPI and below PMFSH Past Medical History Medical History (Updated 04/07/20 @ 14:03 by Giovany Moore PA-C) Acute pharyngitis, unspecified (11/09/17) Bipolar 1 disorder Bronchitis Endometriosis ETD (eustachian tube dysfunction) Hematuria Hepatic steatosis Hepatosplenomegaly History of asthma History of depression History of gastroesophageal reflux (GERD) History of hypothyroidism Hx: UTI (urinary tract infection) Hypotension Leukocytosis Patellofemoral stress syndrome of right knee PCOS (polycystic ovarian syndrome) Previous known suicide attempt Renal cyst Tendinopathy of right biceps tendon Surgical History Surgical History History of cholecystectomy History of tonsillectomy Family History Family History Grandparent Diabetes mellitus Other Family history of hypercholesterolemia Family history of malignant neoplasm of thyroid Family history of thyroid disease Hypertension Social History Social History Years smoked: 3 Smoking status: Never smoker Tobacco type: cigarettes Second hand tobacco smoke exposure: No Smoking end date: 02/24/18 Alcohol intake: never Substance use: never Gender identity (if verbalized by the patient): Female Spiritual care concerns: No Exam Narrative: Exam Narrative: GENERAL: Well-appearing, obese, and in no acute distress. HEAD: Normocephalic, atraumatic. EYES: PERRLA and EOMI. ENT: Nares clear, no rhinorrhea or epistaxis. Mucous membranes moist. CHEST: Clear to auscultation. No respiratory distress. No wheezes rales or rhonchi HEART: Regular rate and rhythm. No murmur heard. Normal peripheral pulses. ABDOMEN: Soft, nontender, nondistended EXTREMITIES: Normal range of motion. No edema. Tenderness across the lumbar spine no deformities noted SKIN: Warm, dry, no rash. NEURO: No focal deficits. Alert and oriented x3. Cranial nerves II through XII grossly intact PSYCH: Normal mood and affect. Course Course Emergency Course: Patient in the room at this time aware of case findings treatment plan and diagnosis agreement to follow with primary care for further evaluation Vital Signs Vital signs: Vital Signs Temperature 96.6 F L 04/07/20 12:29 Pulse Rate 95 04/07/20 12:29 Respiratory Rate 20 04/07/20 12:29 Blood Pressure 143/93 H 04/07/20 12:29 Pulse Oximetry 100 04/07/20 12:29 Temperature 96.6 F L 04/07/20 12:29 Pulse Rate 95 04/07/20 12:29 Respiratory Rate 20 04/07/20 12:29 Blood Pressure 143/93 H 04/07/20 12:29 Pulse Oximetry 100 04/07/20 12:29 MDM - Abdominal Pain MDM Narrative Medical decision making narrative: Patients pain i
[2020-04-07 14:13] VITALS: BP 138/75; PULSE 75; RESP 16; O2SAT 100
== END 2020-04-07 14:13 | disposition home or self-care (01) ==
PROVIDERS: Emergency Provider Emergency Medicine; PCP Nurse Practitioner Family
DX: M54.5 Low back pain (principal); Z87.891 Personal history of nicotine dependence; F31.9 Bipolar disorder, unspecified; Z87.440 Personal history of urinary (tract) infections
CPT/HCPCS: 36415; 80048; 81001; 81025; 85025; 99283

== ENCOUNTER 2020-04-18 06:18 | Emergency (ER) | payer BC, SELFPAY ==
[2020-04-18 06:21] VITALS: BP 125/80; PULSE 105; RESP 18; TEMP 36; O2SAT 100
[2020-04-18 06:55] LABS: Add Urine Microscopic? YES; Appearance Urine Cloudy (Clear); Bacteria Urine Trace /hpf; Bilirubin Urine Negative (Negative); Blood Urine 2+ (Negative); Color Urine Yellow (Yellow); Glucose Urine UA Negative (Negative); Ketones Urine Negative (Negative); Leukocyte Esterase Ur Negative LEU/UL (Negative); Mucus Urine Rare /lpf; Nitrate Urine Negative (Negative); Protein Urine Negative (Negative); RBC Urine 0-2 /hpf (0-2); Specific Grav Ur 1.018 (1.001-1.035); Squamous Epithelial Cell Urine Many /hpf (Few); Urobilinogen Urine Negative mg/dL (<2.0)
--- NOTE | 2020-04-18 07:09 | ED.FEMALEGU ---
HPI - Female Genitourinary General Chief complaint: Urogenital-Female Stated complaint: abd pain, blood w/ urination Time Seen by Provider: 04/18/20 07:08 Source: patient Mode of arrival: ambulatory Limitations: no limitations History of Present Illness HPI Narrative: Patient is a 24-year-old female complaining of low back pain accompanied by dysuria started 2 days ago. Patient also states that she has noticed blood in her urine. Patient denies any abdominal pain, nausea vomiting, diarrhea, fever. Related Data Home Medications Medication Instructions Recorded Confirmed aripiprazole [Abilify] 5 mg PO HS 07/30/19 01/06/20 hydroxyzine HCl 25 mg PO HS PRN 07/30/19 01/06/20 sertraline [Zoloft] 50 mg PO HS 07/30/19 01/06/20 Allergies Allergy/AdvReac Type Severity Reaction Status Date / Time mushroom Allergy Unknown Unknown Verified 04/07/20 12:32 Review of Systems Review of Systems: All systems reviewed & are unremarkable except as noted in HPI and below Constitutional: Constitutional: Denies body ache(s), Denies chills, Denies excessive sweating, Denies fatigue, Denies fever(s), Denies headache(s), Denies lethargy, Denies malaise, Denies weakness and Denies weight loss Eyes: Eyes: Denies blurry vision, Denies change in vision and Denies loss of vision ENT: Denies dizziness, Denies ear discharge, Denies headache(s), Denies lip swelling, Denies epistaxis, Denies nasal congestion, Denies neck pain, Denies throat swelling and Denies tongue swelling Cardiovascular: Cardiovascular: Denies chest pain, Denies chest pain at rest, Denies chest pain with activity, Denies diaphoresis, Denies rapid heart rate, Denies edema, Denies irregular heart rhythm, Denies lightheadedness, Denies palpitations, Denies dyspnea and Denies dyspnea on exertion Respiratory: Respiratory: Denies chest congestion, Denies cough, Denies hemoptysis, Denies dyspnea and Denies dyspnea on exertion Gastrointestinal: Gastrointestinal: Denies abdominal pain, Denies melena, Denies hematochezia, Denies diarrhea, Denies nausea, Denies vomiting and Denies hematemesis Musculoskeletal: Musculoskeletal: Denies abnormal gait, Denies deformity, Denies joint swelling, Denies limited range of motion, Denies neck pain and Denies numbness Neurologic: Denies Abnormal speech present, Denies abnormal gait, Denies confusion, Denies dizziness, Denies headache(s), Denies focal weakness, Denies loss of vision, Denies numbness, Denies Other visual disturbances, Denies Sensory deficit (Neuro) and Denies weakness Psychiatric: Psychiatric: Denies confusion, Denies depression, Denies auditory hallucinations, Denies homicidal ideation and Denies suicidal ideation Endocrine: Endocrine: Denies cold intolerance, Denies excessive sweating, Denies fatigue, Denies heat intolerance and Denies palpitations Hematologic/Lymphatic: Hematologic/Lymphatic: Denies easy bleeding and Denies easy bruising Allergic/Immunologic: Allergic/Immunologic: Denies lip swelling, Denies throat swelling and Denies tongue swelling PMFSH Past Medical History Medical History (Updated 04/18/20 @ 07:42 by Bakari Walsh MD) Acute pharyngitis, unspecified (11/09/17) Bipolar 1 disorder Bronchitis Endometriosis ETD (eustachian tube dysfunction) Hematuria Hepatic steatosis Hepatosplenomegaly History of asthma History of depression History of gastroesophageal reflux (GERD) History of hypothyroidism Hx: UTI (urinary tract infection) Hypotension Leukocytosis Patellofemoral stress syndrome of right knee PCOS (polycystic ovarian syndrome) Previous known suicide attempt Renal cyst Tendinopathy of right biceps tendon Surgical History Surgical History History of cholecystectomy History of tonsillectomy Family History Family History Grandparent Diabetes mellitus Other Family history of hypercholesterolem
== END 2020-04-18 07:58 | disposition home or self-care (01) ==
PROVIDERS: Emergency Medicine; Emergency Provider Emergency Medicine; PCP Nurse Practitioner Family
DX: N30.01 Acute cystitis with hematuria (principal); F31.9 Bipolar disorder, unspecified; N80.9 Endometriosis, unspecified; J45.909 Unspecified asthma, uncomplicated; K21.9 Gastro-esophageal reflux disease without esophagitis; E03.9 Hypothyroidism, unspecified; E28.2 Polycystic ovarian syndrome; F17.210 Nicotine dependence, cigarettes, uncomplicated
CPT/HCPCS: 81001; 81025; 99283

== ENCOUNTER 2020-05-19 16:28 | Emergency (ER) | payer BC, SELFPAY ==
--- NOTE | ~2020-05-19 | XR_ITS ---
EXAMINATION: XR foot RT min 3V DATE: 05/19/2020 16:50 INDICATION: Right foot pain. TECHNIQUE: 5 views of right foot were obtained. COMPARISON: Right foot radiographs 10/18/18 FINDINGS: Bone alignment is normal. No fracture. Joint spaces are well maintained. There is an enthes ophyte at posterior aspect of calcaneal tuberosity. IMPRESSION: 1. No fracture. Reviewed, dictated and finalized at location A. 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 No fracture.
[2020-05-19 16:34] VITALS: BP 136/79; PULSE 94; RESP 20; TEMP 36.7; O2SAT 100
[2020-05-19 16:40] VITALS: BP 136/79; PULSE 94; RESP 20; TEMP 36.7; O2SAT 100
--- NOTE | 2020-05-19 16:42 | ED.EXTPRO ---
HPI - Extremity Problem General Chief complaint: Extremity Problem,Nontraumatic Stated complaint: rt foot pain Time Seen by Provider: 05/19/20 16:31 Source: patient Mode of arrival: ambulatory Limitations: no limitations History of Present Illness HPI Narrative: 24-year-old female presents to [facility] with complaints of right foot pain and swelling for the past 5 days. Patient reports that she has a history of heel spur and plantar fasciitis to her right foot. Patient reports that she had surgery to her right foot due to plantar fasciitis 2 years ago. Patient reports that due to insurance changes, she has not followed up with her prepress operator who completed the surgery. Patient is morbidly obese. 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 Patient has been taking [id number] Tylenol and ibuprofen with minimal relief. Patient denies bruising, erythema, numbness or tingling MD Complaint: extremity pain Onset (ago): day(s) (5) Pain Consistency: constant Radiation: none Relieving factors: nothing Exacerbating factors: weight bearing and walking Related Data Home Medications Medication Instructions Recorded Confirmed aripiprazole [Abilify] 5 mg PO HS 07/30/19 01/06/20 hydroxyzine HCl 25 mg PO HS PRN 07/30/19 01/06/20 sertraline [Zoloft] 50 mg PO HS 07/30/19 01/06/20 budesonide-formoterol [Symbicort] INHALATION 05/19/20 buspirone mg 05/19/20 etonogestrel-ethinyl estradiol vag ring VAGINAL 05/19/20 trazodone 05/19/20 Allergies Allergy/AdvReac Type Severity Reaction Status Date / Time mushroom Allergy Unknown Unknown Verified 04/07/20 12:32 Review of Systems Constitutional: Constitutional: Denies chills, Denies fever(s) and Denies weakness ENT: Denies dysphagia, Denies epistaxis and Denies sore throat Respiratory: Respiratory: Denies chest congestion, Denies cough, Denies dyspnea and Denies wheezing Gastrointestinal: Gastrointestinal: Denies abdominal pain, Denies diarrhea, Denies nausea and Denies vomiting Musculoskeletal: Musculoskeletal: Denies back pain, Reports arthralgias, Reports joint swelling and Denies muscle cramps Comments: right foot pain and swelling Integumentary/Breasts: Skin/Breast: Denies pruritus, Denies erythema, Denies rash and Denies skin ulcer Neurologic: Denies vertigo, Denies dizziness and Denies syncope [facility] Past Medical History Medical History (Updated 05/19/20 @ 16:50 by Valery Powers APRN) Acute pharyngitis, unspecified (11/09/17) Bipolar 1 disorder Bronchitis Endometriosis ETD (eustachian tube dysfunction) Hematuria Hepatic steatosis Hepatosplenomegaly History of asthma History of depression History of gastroesophageal reflux (GERD) History of hypothyroidism Hx: UTI (urinary tract infection) Hypotension Leukocytosis Patellofemoral stress syndrome of right knee PCOS (polycystic ovarian syndrome) Previous known suicide attempt Renal cyst Tendinopathy of right biceps tendon Surgical History Surgical History History of cholecystectomy History of tonsillectomy Family History Family History Grandparent Diabetes mellitus Other Family history of hypercholesterolemia Family history of malignant neoplasm of thyroid Family history of thyroid disease Hypertension Social History Social History Years smoked: 3 Smoking status: Never smoker Tobacco type: cigarettes Second hand tobacco smoke exposure: No Smoking end date: 02/24/18 Alcohol intake: never Substance use: never Gender identity (if verbalized by the patient): Female Spiritual care concerns: No Comments At time of signature, I agree with nursing past medical, surgical, social and family history. There is no relevant family history pertinent to
== END 2020-05-19 17:13 | disposition home or self-care (01) ==
PROVIDERS: Emergency Provider Nurse Practitioner Family; PCP Nurse Practitioner Family
DX: M79.671 Pain in right foot (principal); F31.9 Bipolar disorder, unspecified; N80.9 Endometriosis, unspecified; J45.909 Unspecified asthma, uncomplicated; K21.9 Gastro-esophageal reflux disease without esophagitis; E03.9 Hypothyroidism, unspecified; E66.01 Morbid (severe) obesity due to excess calories; Z68.42 Body mass index [BMI] 45.0-49.9, adult
CPT/HCPCS: 73630; 99213; G0463

== ENCOUNTER 2020-06-13 06:58 | Outpatient (NON) | payer BC, SELFPAY ==
[2020-06-14 01:24] LABS: SARS-CoV-2 RNA PCR Negative
== END 2020-06-13 06:59 ==
LOC: ANHCOVIDDT 06:58
PROVIDERS: PCP Nurse Practitioner Family; Visit Provider Nurse Practitioner Family
DX: R05 Cough (principal); Z20.828 Contact with and (suspected) exposure to other viral communicable diseases
CPT/HCPCS: 87635; C9803; U0003

== ENCOUNTER 2020-07-11 02:27 | Emergency (ER) | payer BC, SELFPAY ==
--- NOTE | ~2020-07-11 | XR_ITS ---
XR hand RT min 3V 07/11/2020 02:57 INDICATION: Right hand pain PROCEDURE: 3 views right hand COMPARISON: Comparison to multiple prior studies sequentially, with oldest reviewed study dated 11/2007. FINDINGS: Fracture, dislocation or subluxation is not identified. The soft tissues appear within norm al limits. No foreign bodies are identified. IMPRESSION: 1: NO ACUTE BONE OR JOINT ABNORMALITY IDENTIFIED. Reviewed, dictated and finalized at location A. 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
[2020-07-11 02:31] VITALS: BP 148/86; PULSE 106; RESP 20; TEMP 36.7; O2SAT 97
--- NOTE | 2020-07-11 02:40 | ED.UPPEXIN ---
HPI - Extremity Injury (Upper) General Chief Complaint: Extremity Injury, Upper Stated Complaint: Broke Finger Time Seen by Provider: 07/11/20 02:39 History of Present Illness HPI narrative: 24 yo female w/ h/o anxiety, and bipolar disorder presents to the ED for finger pain. She fell onto outstretched right hand about 2 hours she says that she landed awkwardly on her right hand. She has pain in the middle finger radiating from the tip to the wrist. She says that she is not able to move it and it feels numb, but she can feel it. Related Data Home Medications Medication Instructions Recorded Confirmed aripiprazole [Abilify] 5 mg PO HS 07/30/19 01/06/20 hydroxyzine HCl 25 mg PO HS PRN 07/30/19 01/06/20 sertraline [Zoloft] 50 mg PO HS 07/30/19 01/06/20 buspirone mg 05/19/20 etonogestrel-ethinyl estradiol vag ring VAGINAL 05/19/20 trazodone 05/19/20 Allergies Allergy/AdvReac Type Severity Reaction Status Date / Time mushroom Allergy Unknown Unknown Verified 07/11/20 02:33 Review of Systems Review of Systems: All systems reviewed & are unremarkable except as noted in HPI and below Constitutional: Constitutional: Denies fever(s) Cardiovascular: Cardiovascular: Denies chest pain Respiratory: Respiratory: Denies dyspnea Gastrointestinal: Gastrointestinal: Denies nausea Musculoskeletal: Musculoskeletal: Denies back pain Psychiatric: Psychiatric: Reports anxiety [facility] Past Medical History Medical History (Updated 07/11/20 @ 03:12 by Kenji Vazquez MD) Acute pharyngitis, unspecified (11/09/17) Bipolar 1 disorder Bronchitis Endometriosis ETD (eustachian tube dysfunction) Hematuria Hepatic steatosis Hepatosplenomegaly History of asthma History of depression History of gastroesophageal reflux (GERD) History of hypothyroidism Hx: UTI (urinary tract infection) Hypotension Leukocytosis Patellofemoral stress syndrome of right knee PCOS (polycystic ovarian syndrome) Previous known suicide attempt Renal cyst Tendinopathy of right biceps tendon Surgical History Surgical History History of cholecystectomy History of tonsillectomy Family History Family History Grandparent Diabetes mellitus Other Family history of hypercholesterolemia Family history of malignant neoplasm of thyroid Family history of thyroid disease Hypertension Social History Social History Years smoked: 3 Smoking status: Never smoker Tobacco type: cigarettes Second hand tobacco smoke exposure: No Smoking end date: 02/24/18 Alcohol intake: never Substance use: never Gender identity (if verbalized by the patient): Female Spiritual care concerns: No Exam Const: General: no acute distress and alert Nutritional Appearance: obese Orientation/consciousness: patient oriented x3 HENMT: Head: normal to inspection Resp: Effort & Inspection: normal respiratory effort Cardio: Other: brisk capillary refill in affected digit Skin: General skin exam: normal color Wounds: no wounds Neuro: General: patient oriented x3 and moves all extremities Speech: normal speech Extrem: Other: diffuse tenderness throughout Right third finger without other obvious abnormality Course Vital Signs Vital signs: Vital Signs Temperature 36.7 C 07/11/20 02:31 Pulse Rate 106 H 07/11/20 02:31 Respiratory Rate 20 07/11/20 02:31 Blood Pressure 148/86 H 07/11/20 02:31 Pulse Oximetry 97 07/11/20 02:31 Temperature 36.7 C 07/11/20 02:31 Pulse Rate 106 H 07/11/20 02:31 Respiratory Rate 20 07/11/20 02:31 Blood Pressure 148/86 H 07/11/20 02:31 Pulse Oximetry 97 07/11/20 02:31 MDM - Extremity Injury (Upper) Differential Diagnosis Differential diagnosis: Likely finger sprain, dislocation of finger and fracture of hand Imaging
[2020-07-11] MEDS: IBUPROFEN 600 MG TABLET PO (03:02)
== END 2020-07-11 03:53 | disposition home or self-care (01) ==
LOC: ANHED 03:19
PROVIDERS: Emergency Provider Emergency Medicine; PCP Nurse Practitioner Family
DX: S63.612A Unspecified sprain of right middle finger, initial encounter (principal); J45.909 Unspecified asthma, uncomplicated; K21.9 Gastro-esophageal reflux disease without esophagitis; E03.9 Hypothyroidism, unspecified; N80.9 Endometriosis, unspecified; E28.2 Polycystic ovarian syndrome; F31.9 Bipolar disorder, unspecified; Z87.440 Personal history of urinary (tract) infections; W19.XXXA Unspecified fall, initial encounter
CPT/HCPCS: 73130; 99283; A9270

== ENCOUNTER 2020-07-22 17:00 | Emergency (ER) | payer BC, SELFPAY ==
--- NOTE | 2020-07-22 17:08 | ED.FEMALEGU ---
HPI - Female Genitourinary General Chief complaint: Urogenital-Female Stated complaint: FREQUENT URINATION Time Seen by Provider: 07/22/20 17:08 Source: patient and RN notes reviewed History of Present Illness HPI Narrative: Patient is a 24-year-old female who presents the urgent care with complaints of a possible UTI. Patient states that for 2 days she has had urgency, frequency, decreased urinary amounts and low suprapubic pressure with intermittent low back pain. Patient states she does have a history of UTIs and her last UTI was approximately 6 months ago. Patient states she has also been hospitalized for kidney infection in the past. Patient denies of any fever, chills, nausea, vomiting, abdominal pain. Patient states that she has been drinking increased amounts of water but denies of any use of [id number] medication. No other acute complaints. No acute distress noted. Patient aware of the plan of care. Some parts of this dictation were generated by voice recognition software and may contain typographical and/or grammatical inaccuracies. Related Data Home Medications Medication Instructions Recorded Confirmed aripiprazole [Abilify] 5 mg PO HS 07/30/19 07/22/20 hydroxyzine HCl 25 mg PO HS PRN 07/30/19 07/22/20 sertraline [Zoloft] 50 mg PO HS 07/30/19 07/22/20 etonogestrel-ethinyl estradiol vag ring VAGINAL 05/19/20 Allergies Allergy/AdvReac Type Severity Reaction Status Date / Time mushroom Allergy Unknown Unknown Verified 07/22/20 17:03 Review of Systems Review of Systems: Narrative: CONSTITUTIONAL: Denies fever, chills, or sweats. EYES: Denies visual changes, redness, or discharge. ENT: Denies rhinorrhea, congestion, sore throat, or otalgia. CARDIOVASCULAR: Denies chest pain, palpitations, or edema. RESPIRATORY: Denies cough or dyspnea. GASTROINTESTINAL: Denies abdominal pain, nausea, vomiting, or diarrhea. GENITOURINARY: Reports of urinary frequency, urgency, decreased amounts and suprapubic pressure SKIN: Denies rash or itching. MUSCULOSKELETAL: Reports of low back pain NEUROLOGIC: Denies headache, numbness, or weakness. All other systems reviewed are negative, except as documented in HPI. [facility] Past Medical History Medical History (Updated 01/27/21 @ 17:25 by RADHA Clemons) Acute pharyngitis, unspecified (11/09/17) Bipolar 1 disorder Bronchitis Endometriosis ETD (eustachian tube dysfunction) Hematuria Hepatic steatosis Hepatosplenomegaly History of asthma History of depression History of gastroesophageal reflux (GERD) History of hypothyroidism Hx: UTI (urinary tract infection) Hypotension Leukocytosis Patellofemoral stress syndrome of right knee PCOS (polycystic ovarian syndrome) Previous known suicide attempt Renal cyst Tendinopathy of right biceps tendon Surgical History Surgical History History of cholecystectomy History of tonsillectomy Family History Family History Grandparent Diabetes mellitus Other Family history of hypercholesterolemia Family history of malignant neoplasm of thyroid Family history of thyroid disease Hypertension Social History Social History Years smoked: 3 Smoking status: Never smoker Tobacco type: cigarettes Second hand tobacco smoke exposure: No Smoking end date: 02/24/18 Alcohol intake: never Substance use: never Gender identity (if verbalized by the patient): Female Spiritual care concerns: No Comments At the time of my signature, I reviewed and agree with the nursing past medical, surgical, social, and family history. There is no relevant family history pertinent to the patient complaint. Exam Narrative: Exam Narrative: GENERAL: This is a well-nourished, well-developed patient, in no apparent distress. HEAD: normocephalic, atraumatic. EYES:
[2020-07-22 17:24] VITALS: BP 144/74; PULSE 109; RESP 16; TEMP 36.4; O2SAT 100
[2020-07-22 17:24] LABS: Glucose Point of Care 226 (65-105)
== END 2020-07-22 17:29 | disposition home or self-care (01) ==
PROVIDERS: Emergency Provider Nurse Practitioner Family; PCP Nurse Practitioner Family
DX: R35.0 Frequency of micturition (principal); F31.9 Bipolar disorder, unspecified; N80.9 Endometriosis, unspecified; J45.909 Unspecified asthma, uncomplicated; K21.9 Gastro-esophageal reflux disease without esophagitis; E03.9 Hypothyroidism, unspecified; E28.2 Polycystic ovarian syndrome
CPT/HCPCS: 81003; 82948; 99212; G0463

== ENCOUNTER 2020-09-19 17:18 | Emergency (ER) | payer BC, SELFPAY ==
[2020-09-19 17:35] VITALS: BP 129/88; PULSE 111; RESP 28; TEMP 36.4; O2SAT 97
[2020-09-19 17:40] VITALS: RESP 22
--- NOTE | 2020-09-19 17:58 | ED.NAVMDI ---
HPI - Nausea/Vomiting/Diarrhea General Chief complaint: Upper Respiratory Infection Stated complaint: chills/headache/cough Source: patient and RN notes reviewed Limitations: no limitations History of Present Illness HPI Narrative: The obese patient-- a non-smoker/nondrinker with frequent visits on diabetes, mood meds-- presents with 1/2-week history of diarrhea. Patient states she and her boyfriend both got ill midweek, associated with diarrhea x3-4, fever to 100.0 po, and epigastric cramps. No vomiting, blood, travel history, cough, S OB, loss of taste/smell, rash, frequency/dysuria. Symptoms are mild, absent now and she has a prior history of cholecystectomy; she requests work note. Patient was hospitalized middle last year for asthma with associated bilateral basilar infiltrates c/w viral pneumonia; abdominal CT then was noncontributory. Related Data Home Medications Medication Instructions Recorded Confirmed aripiprazole [Abilify] 10 mg PO DAILY 09/19/20 09/19/20 budesonide-formoterol 2 inh INHALATION BID 09/19/20 09/19/20 hydroxyzine HCl 1 mg PO BID 09/19/20 09/19/20 metformin 500 mg PO BID 09/19/20 09/19/20 naproxen 1 mg PO BID 09/19/20 09/19/20 Allergies Allergy/AdvReac Type Severity Reaction Status Date / Time mushroom Allergy Unknown Unknown Verified 07/22/20 17:03 Review of Systems Review of Systems: Narrative: General/Constitutional: No weight loss,fever Eyes: N0: Redness,discharge Ears/Nose/Throat: No: Epistaxis,ear discharge Respiratory: Denies: Hemoptysis Gastrointestinal: No Vomiting, Bleeding-rectal Skin: No Lumps, eruption Neurologic: No Focal Weakness,Sz Hematologic: Denies: Petechiae/Purpura Psychiatric: No: Suicida ideationl All Other Systems: Reviewed and Negative [facility] Past Medical History Medical History (Updated 09/20/20 @ 09:06 by Juan Ramon Franklin MD) Acute pharyngitis, unspecified (11/09/17) Bipolar 1 disorder Bronchitis Endometriosis ETD (eustachian tube dysfunction) Hematuria Hepatic steatosis Hepatosplenomegaly History of asthma History of depression History of gastroesophageal reflux (GERD) History of hypothyroidism Hx: UTI (urinary tract infection) Hypotension Leukocytosis Patellofemoral stress syndrome of right knee PCOS (polycystic ovarian syndrome) Previous known suicide attempt Renal cyst Tendinopathy of right biceps tendon Surgical History Surgical History History of cholecystectomy History of tonsillectomy Family History Family History Grandparent Diabetes mellitus Other Family history of hypercholesterolemia Family history of malignant neoplasm of thyroid Family history of thyroid disease Hypertension Social History Social History Years smoked: 3 Smoking status: Never smoker Tobacco type: cigarettes Second hand tobacco smoke exposure: No Smoking end date: 02/24/18 Alcohol intake: never Substance use: never Gender identity (if verbalized by the patient): Female Spiritual care concerns: No Comments At time of signature, agree with nursing past medical, surgical, social and family history. There is no relevant family history pertinent to the presenting complaint Exam Narrative: Exam Narrative: General Appearance: obese appearing, No distress EYE: PERRLA, Conjunctiva clear Ears: External ear normal Nose: Normal nose Mouth/Throat: Normal appearing, Normal lips Neck: Supple Respiratory: Airway patent, No respiratory distress Cardiovascular: RRR Abdomen: Soft, Non-tender, No massess, No organomegaly (no rebound/ surgical signs), Hyperactive bowel sounds Musculoskeletal: Full ROM Skin: Warm, Dry Neurological: A&O x3, CN II-X intact Psychiatric: Normal mood, Normal affect Course Vital Signs Vital signs: Vital Signs Temperature 97.6 F
== END 2020-09-19 18:04 | disposition home or self-care (01) ==
PROVIDERS: Emergency Provider Emergency Medicine; PCP Nurse Practitioner Family
DX: R10.13 Epigastric pain (principal); R19.7 Diarrhea, unspecified; Z20.822 Contact with and (suspected) exposure to COVID-19; F31.9 Bipolar disorder, unspecified; N80.9 Endometriosis, unspecified; J45.909 Unspecified asthma, uncomplicated; K21.9 Gastro-esophageal reflux disease without esophagitis; E03.9 Hypothyroidism, unspecified; E28.2 Polycystic ovarian syndrome
CPT/HCPCS: 87426; 99213; C9803; G0463

== ENCOUNTER 2020-11-07 12:41 | Emergency (ER) | payer BC, SELFPAY ==
--- NOTE | ~2020-11-07 | XR_ITS ---
XR chest 2V DATE: 11/07/2020 13:22 INDICATION: Cough, fever TECHNIQUE: PA and lateral views COMPARISON: 02/20/2020 portable AP chest FINDINGS: The lateral views are suboptimal due to exposure during expiration and motion. Normal heart size. No hilar or mediastinal enlargement. No pulmonary infiltrate or consolidation, ple ural effusion or pulmonary vascular congestion or pneumothorax. Included skeletal structures are unremarkable. IMPRESSION: No active cardiopulmonary disease Reviewed, dictated and finalized at location A.
[2020-11-07 12:51] VITALS: BP 146/88; PULSE 93; RESP 16; TEMP 36.3; O2SAT 99
[2020-11-07 12:53] VITALS: BP 146/88; PULSE 93; RESP 16; TEMP 36.3; O2SAT 99
--- NOTE | 2020-11-07 13:05 | ED.URI ---
HPI - URI/Sore Throat General Chief Complaint: Upper Respiratory Infection Stated Complaint: Cold symptoms Time Seen by Provider: 11/07/20 13:06 Source: patient Mode of arrival: ambulatory Limitations: no limitations History of Present Illness HPI Narrative: Anabel Garcia is a 25 yo female with a PMH of bipolar disorder, depression , asthma, diabetes, who comes to [facility] for evaluation of cold symptoms. Patient has been seen at multiple places for various complaints including [place] [facility] yesterday for fever cough and received Zofran after evaluation, blood work. IN reviewing her prescriptions, she is had many prescriptions and many visits over the last few years Related Data Home Medications Medication Instructions Recorded Confirmed aripiprazole [Abilify] 10 mg PO DAILY 09/19/20 09/19/20 budesonide-formoterol 2 inh INHALATION BID 09/19/20 09/19/20 metformin 500 mg PO BID 09/19/20 09/19/20 ondansetron 11/07/20 sertraline mg 11/07/20 Allergies Allergy/AdvReac Type Severity Reaction Status Date / Time mushroom Allergy Unknown Unknown Verified 07/22/20 17:03 Review of Systems Review of Systems: Narrative: CONSTITUTIONAL: fever, chills, sweats. EYES: Denies visual changes, redness, discharge. ENT: Denies rhinorrhea, congestion, sore throat, otalgia. CARDIOVASCULAR: Denies chest pain, palpitations, edema. RESPIRATORY: Denies dyspnea, wheezing, cough-nausea, vomiting, cough GASTROINTESTINAL: Denies abdominal pain, nausea, vomiting, diarrhea. GENITOURINARY: Denies dysuria, hematuria, abnormal discharge SKIN: Denies rash or itching. NEUROLOGIC: Denies numbness, or focal weakness. PSYCHIATRIC: Denies anxiety or depression. [facility] Past Medical History Medical History (Updated 11/07/20 @ 14:02 by Linsey Morocho CNP) Acute pharyngitis, unspecified (11/09/17) Bipolar 1 disorder Bronchitis Endometriosis ETD (eustachian tube dysfunction) Hematuria Hepatic steatosis Hepatosplenomegaly History of asthma History of depression History of gastroesophageal reflux (GERD) History of hypothyroidism Hx: UTI (urinary tract infection) Hypotension Leukocytosis Patellofemoral stress syndrome of right knee PCOS (polycystic ovarian syndrome) Previous known suicide attempt Renal cyst Tendinopathy of right biceps tendon Surgical History Surgical History History of cholecystectomy History of tonsillectomy Family History Family History Grandparent Diabetes mellitus Other Family history of hypercholesterolemia Family history of malignant neoplasm of thyroid Family history of thyroid disease Hypertension Social History Social History (Updated 11/07/20 @ 13:10 by Linsey Morocho CNP) Years smoked: 3 Smoking status: Former smoker Tobacco type: cigarettes Second hand tobacco smoke exposure: No Smoking end date: 02/24/18 Alcohol intake: never Substance use: never Gender identity (if verbalized by the patient): Female Spiritual care concerns: No Comments At time of signature, I agree with nursing past medical, surgical, social and family history. There is no relevant family history pertinent to the presenting complaint. Exam Narrative: Exam Narrative: GENERAL: This is a well-nourished, well-developed patient, in mild distress. HEAD: normocephalic, atraumatic. EYES: PERRL. Sclera clear/white. Vision is grossly intact. EARS: External ears normal, auditory canals clear and without drainage, TMs normal without perforation. Hearing grossly intact. NOSE: External nose normal without nasal discharge, nares without redness, no rhinorrhea. THROAT: Mucous membranes moist, posterior pharynx mild erythema no drainage noted NECK: Neck supple, non-tender CARDIOVASCULAR: Regular rate and rhythm without murmurs, gallops, or rubs. RESPIRATORY: Clear to auscultation. Breath sounds equal bila
== END 2020-11-07 14:08 | disposition home or self-care (01) ==
PROVIDERS: Emergency Provider Nurse Practitioner; PCP Physician Assistant
DX: R05 Cough (principal); Z87.891 Personal history of nicotine dependence; E28.2 Polycystic ovarian syndrome; K21.9 Gastro-esophageal reflux disease without esophagitis; N80.9 Endometriosis, unspecified; F31.9 Bipolar disorder, unspecified; E11.9 Type 2 diabetes mellitus without complications
CPT/HCPCS: 71046; 99213; G0463

== ENCOUNTER 2021-01-03 19:51 | Emergency (ER) | payer BC, SELFPAY ==
--- NOTE | ~2021-01-03 | CT_ITS ---
EXAMINATION: CT brain wo con DATE: 01/03/2021 23:36 INDICATION: Headache. TECHNIQUE: Computed tomography (CT) of the head was performed without intravenous contrast. The mA wa s adjusted according to patient size. Iterative reconstruction technique was employed. The dose-lengt h product was 605.33 mGy-cm. COMPARISON: Head CT 01/19/2020 FINDINGS: There is no intracranial hemorrhage, acute infarction, or abnormal intracranial mass lesion . The ventricles are normal in size. The orbits are normal. The paranasal sinuses are clear. The mast oid air cells are normal. IMPRESSION: 1. Normal brain. Reviewed, dictated and finalized at location A. IMPRESSION: 1. Normal brain.
[2021-01-03 20:22] VITALS: BP 135/84; PULSE 117; RESP 14; TEMP 37.1; O2SAT 99
--- NOTE | 2021-01-03 23:11 | ED.HA ---
HPI - Headache General Chief Complaint: Headache Stated Complaint: headache Time Seen by Provider: 01/03/21 23:09 Source: RN notes reviewed History of Present Illness HPI Narrative: Patient presents to emergency department from home for headache. Patient states she has had a headache for the past 3 days states that the headache will come and go but is been constant since awaking this morning states that the pain is over bilateral frontal forehead and wraps around like a band around to the back of her head states is associated with nausea she denies any fevers vision changes rhinorrhea, sore throat chest pain shortness of breath or any other symptoms states she last took ibuprofen for the pain approximately 8 hours ago Related Data Home Medications Medication Instructions Recorded Confirmed aripiprazole [Abilify] 10 mg PO DAILY 09/19/20 12/09/20 metformin 500 mg PO BID 09/19/20 12/09/20 sertraline mg 11/07/20 12/09/20 hydroxyzine HCl 25 mg tablet 25 mg PO DAILY tablet 12/09/20 oxybutynin chloride 10 mg 10 mg PO DAILY 12/09/20 tablet,extended release 24 hr Allergies Allergy/AdvReac Type Severity Reaction Status Date / Time mushroom Allergy Unknown Unknown Verified 12/09/20 11:12 Review of Systems Review of Systems: Narrative: Gen.: Denies fevers or chills Eyes: Denies eye pain or visual change ENT: Denies congestion Respiratory: Denies shortness of breath or cough CV: Denies chest pain or palpitations GI: Denies abdominal pain emesis or diarrhea. Reports nausea denies chance of Musculoskeletal: Denies back pain or muscle pain Neuro: See HPI Skin: Denies rash Except as documented, all other systems reviewed and negative [facility] Past Medical History Medical History Acute pharyngitis, unspecified (11/09/17) Anxiety Arthritis Bipolar 1 disorder Bronchitis Carpal tunnel syndrome of right wrist De Quervain's disease (radial styloid tenosynovitis) Depression Endometriosis ETD (eustachian tube dysfunction) Hematuria Hepatic steatosis Hepatosplenomegaly History of asthma History of depression History of gastroesophageal reflux (GERD) History of hypothyroidism Hx: UTI (urinary tract infection) Hypotension Leukocytosis Patellofemoral stress syndrome of right knee PCOS (polycystic ovarian syndrome) Previous known suicide attempt Renal cyst Rupture of ligament of wrist Tendinopathy of right biceps tendon Surgical History Surgical History (Updated 12/09/20 @ 15:03 by Nicloe Grijalva, RT(R)) History of cholecystectomy History of surgery on wrist Extensor Compartment Release and Carpal Tunnel Release, Dr. Granados, 2020 History of tonsillectomy Family History Family History Grandparent Diabetes mellitus Other Family history of hypercholesterolemia Family history of malignant neoplasm of thyroid Family history of thyroid disease Hypertension Social History Social History Years smoked: 3 Smoking status: Former smoker Tobacco type: cigarettes Second hand tobacco smoke exposure: No Smoking end date: 02/24/18 Alcohol intake: never Substance use: never Gender identity (if verbalized by the patient): Female Spiritual care concerns: No Exam Narrative: Exam Narrative: APPEARANCE: No acute distress, nontoxic, resting in bed EYES: EOMI, PERRL HEENT: Normocephalic, atraumatic, OMM TMs clear bilaterally nares patent Neck: Supple full range of motion without pain RESPIRATORY: No respiratory distress Clear to auscultation bilaterally with no rhonchi wheezing or rales. CARDIOVASCULAR: Regular rate and rhythm without murmurs rubs or gallops. ABDOMINAL: Soft, nontender, nondistended, no rebound or guarding MUSCULOSKELETAl: Moves all extremities. No clubbing, cyanosis or edema. NEURO: Awake and alert x 4. Following
[2021-01-03 23:26] VITALS: BP 119/66; PULSE 104; RESP 20; TEMP 36.7; O2SAT 97
--- NOTE | 2021-01-03 23:28 | PC.NURSE ---
To ct scan.
[2021-01-03] MEDS: SODIUM CHLORIDE 0.9% IV 1,000 ML 999 ML IV CONT (23:51)
[2021-01-03] MEDS: ONDANSETRON INJ 4 MG/2 ML VIAL IV PUSH (23:53)
[2021-01-03] MEDS: KETOROLAC 30 MG/ML VIAL (*BKC) IV PUSH (23:54)
[2021-01-03] MEDS: diphenhydrAMINE HCl INJ 50 MG/ML VIAL 25 MG IV PUSH (23:55)
[2021-01-04 00:50] VITALS: BP 123/44; PULSE 96; RESP 16; O2SAT 96
--- NOTE | 2021-01-14 14:40 | PC.NURSE ---
LATE ENTRY This note is being entered to document information to the patient's record. The following information was omitted on [01/03/21], by [Kaye Brito RN]. NS stop time is 0050am.
--- NOTE | 2021-01-22 21:31 | PC.NURSE ---
LATE ENTRY This note is being entered to document information to the patient's record. The following information was omitted on [], by []. NS infusion completed at 0011.
== END 2021-01-04 00:51 | disposition home or self-care (01) ==
PROVIDERS: Emergency Provider Emergency Medicine; PCP Physician Assistant
DX: R51.9 Headache, unspecified (principal); M19.90 Unspecified osteoarthritis, unspecified site; M65.4 Radial styloid tenosynovitis [de Quervain]; J45.909 Unspecified asthma, uncomplicated; K21.9 Gastro-esophageal reflux disease without esophagitis; E03.9 Hypothyroidism, unspecified; Z87.440 Personal history of urinary (tract) infections; E28.2 Polycystic ovarian syndrome; F31.9 Bipolar disorder, unspecified; F41.9 Anxiety disorder, unspecified; Z87.891 Personal history of nicotine dependence
CPT/HCPCS: 70450; 96361; 96374; 96375; 99284; J1200; J1885; J2405; J7030

== ENCOUNTER 2021-02-04 10:00 | Outpatient (RCR) | payer BC, SELFPAY ==
--- NOTE | 2021-01-15 13:45 | OTOPEVAL ---
OCCUPATIONAL THERAPY INITIAL EVALUATION: 01/15/2021 Thank you for referring Anabel Garcia to [facility].? The patient is scheduled to be seen for therapy? 1-2x/week for 4weeks. Please review, sign, date and return this plan of care MARINA. I agree with and certify that the following plan of care is medically necessary. Referring Physician Date Attending Provider: Gavino Sy MD *OT Outpatient Evaluation Start: 01/15/21 12:27 Freq: Status: Active Protocol: Document 01/15/21 12:44 KJL (Rec: 01/15/21 13:44 KJL [id number]) Therapy Assessment Status Assessment Status Assessment Status Evaluation Evaluation Information Problem Onset 08/2020 Additional Evaluation Detail Patient reports had a fall in June 2020 and fell onto R hand resulting in pain in 1st dorsal compartment over EPB and APL tendons in addition to carpal tunnel symptoms of numbness/tinging in clark aspect of digits I-III. Patient went to Dr. Granados who completed a CTR and DeQuervain 's release on 09/13/2020. Patient continues to have pain since surgeries in R hand. Subjective Information Patient reports increased pain Query Text:As Reported By Patient/ in R hand/wrist since fall Family and pain has become worse since surgeries. Patient reports completing functional and daily tasks are difficult to complete with dominant R hand including bathing and toileting tasks. Patient reports increased pain with gripping, grasping objects, and cannot move hand well anymore. Patient continues to have pain since surgeries in R hand more over the 1st dorsal compartment. Patient reports carpal tunnel symptoms have improved since surgery. 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
--- NOTE | 2021-02-04 11:01 | OTOPEVAL ---
OCCUPATIONAL THERAPY RE-EVALUATION REPORT AND DISCHARGE SUMMARY 02/04/21 Anabel is a 25 year-old, right handed female with right UE pain that has been chronic since a fall in Jun 2020. OT began 3 weeks ago. Treatments have included postural exercises, ROM, and nerve glides. Clinically the patient presents with nerve pain that may correlate with brachial plexopathy. Pain symptoms decrease with postural changes and proximal stretching. Would recommend testing that includes more proximal structures in the right UE, particularly in the upper arm and axillary region. Furthermore, the patient states that she is beginning a new job next week, 02/08. She will be working Mon-Fri from 01-28. She is unable to leave work early to continue to attend therapy sessions. Due to her new rigid work schedule she is unable to continue to attend therapy at this time. Reviewed HEP and patient is independent with all materials. Thank you for referring Anabel Garcia to [facility]. Please review, sign, date and return this D/C Note MARINA. I agree with and certify that the following plan of care is medically necessary. Referring Physician Date Referring Provider: Gavino Sy MD *OT Outpatient Re-Evaluation Start: 01/15/21 12:27 Evaluation Information Problem Onset 08/2020 Additional Evaluation Detail Fall - Jun 2020 CTR and DeQuervain's release - 09/13/2020 Patient has attended 3 weeks of therapy with no relief in symptoms. Subjective Information Patient reports no changes in Query Text:As Reported By Patient/ the right UE. She continues to Family have difficulties with toileting tasks, dressing, and don/doffing a bra. Continues to report difficulties and pain with gripping and grasping objects. Site of pain is localized to the lateral forearm and hand/thumb/index finger. Pain Assessment Timing of Pain Assessment Timing of Pain Assessment Re-assessment Pain Scale Pain Scale Used Numeric (1 - 10) Self Report Pain Assessment Right Arm(s) Reported Pain Level 5 Pain Description Aching,Dull,Sharp Lowest Pain Intensity 4 Greatest Pain Intensity 5 Pain Score Pain Score 5: Self Report Interventions Used Interventions Used By Clinicians Rest Upper Extremity Range of Motion Scapular/ Shoulder Range of Motion Right Reason Not Measured WNL/Right Elbow/Forearm Range of Motion Right Forearm Supination - Active 60 Forearm Pronation - Active 80 Elbow/Forearm Range of Motion Comments Elbow flex/ext are WNL. Wrist Range of Motion Right Reason Not Measured WNL/Left Wrist Flexion - Active 60 Wrist Exte
== END 2021-02-05 13:17 | disposition home or self-care (01) ==
LOC: ANHOT 10:00
PROVIDERS: PCP Physician Assistant; Visit Provider Orthopaedic Surgery
DX: M65.4 Radial styloid tenosynovitis [de Quervain] (principal); M25.531 Pain in right wrist
CPT/HCPCS: 97018; 97110; 97140; 97165

== ENCOUNTER 2021-03-02 18:33 | Emergency (ER) | payer BC, SELFPAY ==
--- NOTE | 2021-03-02 18:42 | PC.NURSE ---
left from unit receptionist desk. left prior to triage. did not want to wait.encouraged to return if symptoms change/worsen
--- NOTE | 2021-03-02 20:07 | PC.NURSE ---
Pt called at 2006, no answer.
--- NOTE | 2021-03-02 20:17 | PC.NURSE ---
Pt called at 2017, no response.
== END 2021-03-03 04:53 | disposition left against medical advice (07) ==
PROVIDERS: PCP Physician Assistant
DX: Z53.21 Procedure and treatment not carried out due to patient leaving prior to being seen by health care provider (principal)
CPT/HCPCS: 99199

== ENCOUNTER 2021-03-04 17:30 | Emergency (ER) | payer BC, SELFPAY ==
[2021-03-04 17:52] VITALS: BP 144/85; PULSE 118; RESP 18; TEMP 36.4; O2SAT 99
--- NOTE | 2021-03-04 18:37 | PC.NURSE ---
1827 pt noted ambulating out of ED with steady gait. Did not return
== END 2021-03-04 18:37 | disposition left against medical advice (07) ==
LOC: ANHED 18:43
PROVIDERS: PCP Physician Assistant
DX: R50.9 Fever, unspecified (principal)
CPT/HCPCS: 99199

== ENCOUNTER 2021-04-16 02:14 | Day surgery (SDC) | payer BC, SELFPAY ==
[2021-04-02 14:06] VITALS: BMI 50.0
--- NOTE | 2021-04-15 13:49 | PM.HPGS ---
History of Present Illness History of Present Illness Consent: Risks, benefits, and alternatives have been discussed and questions answered. Patient agrees to proceed with procedure. Chief complaint: GERD Narrative: Anabel Garcia is a 25 year old female Who has suffered from epigastric pain and heartburn for the past 6 months. This generally comes on after meal. Omeprazole has had very little effect on her symptoms. She denies dysphagia . She has been to emergency room a couple of times when the pain is so bad that she will begin vomiting. She has had no weight loss, but she has been skipping some meals because she is afraid to eat for fear of the pain Review of Systems Review of Systems: All systems reviewed & are unremarkable except as noted in HPI and below PMFSH Past Medical History Medical History Acute pharyngitis, unspecified (11/09/17) Anxiety Arthritis Bipolar 1 disorder Bronchitis Carpal tunnel syndrome of right wrist Carpal tunnel syndrome, left De Quervain's disease (radial styloid tenosynovitis) Depression Endometriosis ETD (eustachian tube dysfunction) Hematuria Hepatic steatosis Hepatosplenomegaly History of asthma History of depression History of gastroesophageal reflux (GERD) History of hypothyroidism Hx: UTI (urinary tract infection) Hypotension Leukocytosis Obese Patellofemoral stress syndrome of right knee PCOS (polycystic ovarian syndrome) Previous known suicide attempt Renal cyst Rupture of ligament of wrist Tendinopathy of right biceps tendon Surgical History Surgical History History of cholecystectomy History of surgery on wrist Extensor Compartment Release and Carpal Tunnel Release, Dr. Granados, 2020 History of tonsillectomy Family History Family History Grandparent Diabetes mellitus Other Family history of hypercholesterolemia Family history of malignant neoplasm of thyroid Family history of thyroid disease Hypertension Social History Social History Years smoked: 3 Smoking status: Never smoker Tobacco type: cigarettes Second hand tobacco smoke exposure: No Smoking end date: 02/24/18 Alcohol intake: never Substance use: never Living arrangements: with family Gender identity (if verbalized by the patient): Female Spiritual care concerns: No Meds Home Medications and Allergies Home Medications Medication Instructions Recorded Confirmed Type aripiprazole [Abilify] 10 mg PO HS 09/19/20 04/16/21 History metformin 500 mg PO BID 09/19/20 04/16/21 History sertraline 50 mg PO HS 11/07/20 04/16/21 History hydroxyzine HCl 25 mg tablet 25 mg PO HS tablet 12/09/20 04/16/21 History oxybutynin chloride 10 mg 10 mg PO HS 12/09/20 04/16/21 History tablet,extended release 24 hr ibuprofen [IBU] 600 mg PO Q6H PRN #20 tablet 01/04/21 04/16/21 Rx hydrocodone 5 mg-acetaminophen 325 1 tablet PO Q6H PRN #30 tablet 03/24/21 04/16/21 Rx mg tablet Allergies Allergy/AdvReac Type Severity Reaction Status Date / Time mushroom Allergy Intermediate Rash Verified 04/16/21 09:52 Exam Const: General: alert Nutritional Appearance: obese Orientation/consciousness: patient oriented x3 Resp: Auscultation: clear to auscultation bilaterally Cardio: Rhythm: regular rhythm GI: GI Palp: Yes Soft to palpation and No Tenderness to palpation present (GI) Neuro: General: patient oriented x3 Assessment and Plan Assessment and plan (1) Epigastric pain: Code(s): R10.13 - Epigastric pain Status: Acute Assessment and Plan: EGD with possible biopsy or dilatation or cautery.
[2021-04-16 09:55] VITALS: BP 127/82; PULSE 119; RESP 19; TEMP 35.9; O2SAT 96; BMI 50.3
[2021-04-16] MEDS: LACTATED RINGERS 1,000 ML 150 ML IV CONT (09:58)
[2021-04-16 10:00] LABS: Glucose Point of Care 107 mg/dl (65-105)
--- NOTE | 2021-04-16 10:20 | WPDANESEPPF ---
Anes - Initial Pre Proc Eval Procedure: Operation Date: 04/16/21 10:45 Proposed Procedures p Esophagogastroduodenoscopy - Aamir Coello MD Date/Time: 04/16/21 10:20 Surgeon: Aamir Coello MD Pre Op Diagnosis: GERD Patient Data Age: 25 Gender: F Height: 1.65 m Weight: 137.4 kg Last Vital Signs Temp 96.7 F L 04/16/21 09:55 Pulse 119 H 04/16/21 09:55 Resp 19 04/16/21 09:55 BP 127/82 04/16/21 09:55 Pulse Ox 96 04/16/21 09:55 Allergies Allergy/AdvReac Type Severity Reaction Status Date / Time mushroom Allergy Intermediate Rash Verified 04/16/21 09:52 Home Medications Medication Instructions Recorded Confirmed Type aripiprazole [Abilify] 10 mg PO HS 09/19/20 04/16/21 History metformin 500 mg PO BID 09/19/20 04/16/21 History sertraline 50 mg PO HS 11/07/20 04/16/21 History hydroxyzine HCl 25 mg tablet 25 mg PO HS tablet 12/09/20 04/16/21 History oxybutynin chloride 10 mg 10 mg PO HS 12/09/20 04/16/21 History tablet,extended release 24 hr ibuprofen [IBU] 600 mg PO Q6H PRN #20 tablet 01/04/21 04/16/21 Rx hydrocodone 5 mg-acetaminophen 325 1 tablet PO Q6H PRN #30 tablet 03/24/21 04/16/21 Rx mg tablet Laboratory Tests 04/16/21 09:57 POC Capillary Glucose 107 mg/dl H mg/dl (65-105) Patient hx anesthesia problems: none Family hx anesthesia problems: none Results Review: All pre-operative results and documents have been reviewed as part of the pre-operative evaluation. [facility] Past Medical History Medical History Acute pharyngitis, unspecified (11/09/17) Anxiety Arthritis Bipolar 1 disorder Bronchitis Carpal tunnel syndrome of right wrist Carpal tunnel syndrome, left De Quervain's disease (radial styloid tenosynovitis) Depression Endometriosis ETD (eustachian tube dysfunction) Hematuria Hepatic steatosis Hepatosplenomegaly History of asthma History of depression History of gastroesophageal reflux (GERD) History of hypothyroidism Hx: UTI (urinary tract infection) Hypotension Leukocytosis Obese Patellofemoral stress syndrome of right knee PCOS (polycystic ovarian syndrome) Previous known suicide attempt Renal cyst Rupture of ligament of wrist Tendinopathy of right biceps tendon Surgical History Surgical History History of cholecystectomy History of surgery on wrist Extensor Compartment Release and Carpal Tunnel Release, Dr. Granados, 2020 History of tonsillectomy Family History Family History Grandparent Diabetes mellitus Other Family history of hypercholesterolemia Family history of malignant neoplasm of thyroid Family history of thyroid disease Hypertension Social History Social History Years smoked: 3 Smoking status: Never smoker Tobacco type: cigarettes Second hand tobacco smoke exposure: No Smoking end date: 02/24/18 Alcohol intake: never Substance use: never Living arrangements: with family Gender identity (if verbalized by the patient): Female Spiritual care concerns: No Anes - Eval Final PreProcedure Day of Procedure 04/16/21 10:20 Patient weight: super morbidly obese Heart: regular rate and rhythm Airway: Mallampati scale class III Neurological: alert and oriented Last oral intake: >/= 8 hours ASA classification: III Emergent: no Anesthetic plan: proceed Anesthesia type and monitoring: general GIVS and standard monitoring Results Review: All pre-operative results and documents have been reviewed as part of the pre-operative evaluation. Informed Consent: The patient's anesthetic plan and its attendant risks and benefits were discussed with the patient/family/POA. Questions were solicited and answers provided to the satisfaction of the patient/family/POA.
[2021-04-16] MEDS: BENZOCAINE (*SP) 60 ML SPRAY CAN (HURRICAINE) 1 SPRAY MUCOUS MEM (10:56)
[2021-04-16 11:10] VITALS: BP 116/80; PULSE 99; RESP 30; O2SAT 96
[2021-04-16 11:20] VITALS: BP 128/79; PULSE 98; RESP 33; O2SAT 96
[2021-04-16 11:30] VITALS: BP 120/83; PULSE 93; RESP 36; O2SAT 96
== END 2021-04-16 11:53 | disposition home or self-care (01) ==
PROVIDERS: PCP Physician Assistant; Visit Provider Internal Medicine Gastroenterology
PROC: 0DJ08ZZ Inspection of Upper Intestinal Tract, Via Natural or Artificial Opening Endoscopic (ICD-10-PCS; CPT 43235; principal; 2021-04-16 10:45)
DX: K21.9 Gastro-esophageal reflux disease without esophagitis (principal); Z79.01 Long term (current) use of anticoagulants; Z79.84 Long term (current) use of oral hypoglycemic drugs; F41.9 Anxiety disorder, unspecified; M19.90 Unspecified osteoarthritis, unspecified site; F31.9 Bipolar disorder, unspecified; M65.4 Radial styloid tenosynovitis [de Quervain]; N80.9 Endometriosis, unspecified; R31.9 Hematuria, unspecified; K76.0 Fatty (change of) liver, not elsewhere classified; R16.1 Splenomegaly, not elsewhere classified; J45.909 Unspecified asthma, uncomplicated; I95.9 Hypotension, unspecified; D72.829 Elevated white blood cell count, unspecified; E28.2 Polycystic ovarian syndrome; N28.1 Cyst of kidney, acquired; Z87.891 Personal history of nicotine dependence; E66.01 Morbid (severe) obesity due to excess calories; Z68.43 Body mass index [BMI] 50.0-59.9, adult
CPT/HCPCS: 43239; 82948; 87081; 88305; J2704; J7120

== ENCOUNTER 2021-05-03 17:41 | Emergency (ER) | payer BC, SELFPAY ==
--- NOTE | ~2021-05-03 | XR_ITS ---
EXAMINATION: XR chest 2V EXAM DATE: 05/03/2021 17:54 INDICATION: Cough. TECHNIQUE: Frontal and lateral projections of the chest obtained and reviewed. There is no prior marie dy for comparison. FINDINGS: The lungs are clear. There are no pleural effusions. The cardiomediastinal silhouette is within normal limits. There is no pneumothorax suspected. The bones and soft tissues are unremarkab le. IMPRESSION: No acute cardiopulmonary findings. Reviewed, dictated and finalized at location A. SERVICE [employer]PER[employer]OR
[2021-05-03 17:47] VITALS: BP 136/77; PULSE 117; RESP 18; TEMP 36.5; O2SAT 98
--- NOTE | 2021-05-03 17:49 | ED.URI ---
HPI - URI/Sore Throat General Chief Complaint: Upper Respiratory Infection Stated Complaint: cough/chest congestion Time Seen by Provider: 05/03/21 17:45 Source: patient and RN notes reviewed Mode of arrival: ambulatory Limitations: no limitations History of Present Illness HPI Narrative: 25-year-old female presents to the [facility] with 4 days of productive cough. Has a history of allergies and asthma. Also has a history of PCOS, GERD, anxiety depression. Reports that she has been using her albuterol inhaler without relief. Reports cough keeps getting worse. Denies chest pain. Reports occasional shortness of breath and wheezing. Denies fevers, abdominal pain, nausea or vomiting. MD elicited complaint: cough Pertinent past history: asthma and seasonal allergies Related Data Home Medications Medication Instructions Recorded Confirmed aripiprazole [Abilify] 10 mg PO HS 09/19/20 05/03/21 metformin 500 mg PO BID 09/19/20 05/03/21 sertraline 50 mg PO HS 11/07/20 05/03/21 hydroxyzine HCl 25 mg tablet 25 mg PO HS tablet 12/09/20 05/03/21 oxybutynin chloride 10 mg 10 mg PO HS 12/09/20 05/03/21 tablet,extended release 24 hr Allergies Allergy/AdvReac Type Severity Reaction Status Date / Time mushroom Allergy Intermediate Rash Verified 04/16/21 09:52 Review of Systems Review of Systems: All systems reviewed & are unremarkable except as noted in HPI and below Constitutional: Constitutional: Reports no additional constitutional complaints, Denies chills and Denies fever(s) Eyes: Eyes: Reports no additional eye complaints ENT: Reports system reviewed and no additional complaints, except as documented and Denies sore throat Cardiovascular: Cardiovascular: Reports no additional cardiovascular complaints, Denies chest pain, Denies rapid heart rate and Denies radiating jaw, neck or arm pain Respiratory: Respiratory: Reports as per HPI, Reports cough, Reports dyspnea and Reports wheezing Gastrointestinal: Gastrointestinal: Reports no additional gastrointestinal complaints, Denies abdominal pain, Denies diarrhea, Denies nausea and Denies vomiting Genitourinary: Genitourinary: Reports no additional female genitourinary complaints Musculoskeletal: Musculoskeletal: Reports no additional musculoskeletal complaints Integumentary/Breasts: Skin/Breast: Reports system reviewed and no additional complaints, except as docu Neurologic: Reports system reviewed and no additional complaints, except as documented Psychiatric: Psychiatric: Reports no additional psychiatric complaints Allergic/Immunologic: Allergic/Immunologic: Reports no additional allergic/immunologic complaints PMFSH Past Medical History Medical History Acute pharyngitis, unspecified (11/09/17) Anxiety Arthritis Bipolar 1 disorder Bronchitis Carpal tunnel syndrome of right wrist Carpal tunnel syndrome, left De Quervain's disease (radial styloid tenosynovitis) Depression Endometriosis ETD (eustachian tube dysfunction) Hematuria Hepatic steatosis Hepatosplenomegaly History of asthma History of depression History of gastroesophageal reflux (GERD) History of hypothyroidism Hx: UTI (urinary tract infection) Hypotension Leukocytosis Obese Patellofemoral stress syndrome of right knee PCOS (polycystic ovarian syndrome) Previous known suicide attempt Renal cyst Rupture of ligament of wrist Tendinopathy of right biceps tendon Surgical History Surgical History History of cholecystectomy History of surgery on wrist Extensor Compartment Release and Carpal Tunnel Release, Dr. Granados, 2020 History of tonsillectomy Family History Family History Grandparent Diabetes mellitus Other Family history of hypercholesterolemia Family history of malignant neoplasm of thyroid Family history of thyroid disease Hypertension
== END 2021-05-03 18:20 | disposition home or self-care (01) ==
PROVIDERS: Emergency Provider Nurse Practitioner
DX: J40 Bronchitis, not specified as acute or chronic (principal); F41.9 Anxiety disorder, unspecified; M19.90 Unspecified osteoarthritis, unspecified site; F32.9 Major depressive disorder, single episode, unspecified; N80.9 Endometriosis, unspecified; K21.9 Gastro-esophageal reflux disease without esophagitis; E66.9 Obesity, unspecified; E28.2 Polycystic ovarian syndrome
CPT/HCPCS: 71046; 99213; G0463

== ENCOUNTER 2021-12-15 11:40 | Outpatient (CLI) | payer OTHER, BC, SELFPAY ==
--- NOTE | ~2021-12-15 | XR_ITS ---
EXAM: XR lumbar spine min 4V DATE: 12/15/2021 12:08 HISTORY: CHRONIC BACK PAIN, endometriosis . COMPARISON: None available. FINDINGS: 5 nonrib-bearing lumbar-type vertebral bodies. Pedicles intact. Normal vertebral body alig nment. Vertebral body heights preserved. Mild disc space narrowing at L4-5 and L5-S1. No pars defect. Mild facet sclerosis at L4-5 and L5-S1. No fracture or dislocation. IMPRESSION: Mild degenerative disc disease and facet arthropathy at L4-5 and L5-S1. Reviewed, dictated and finalized at location K. IMPRESSION: Mild degenerative disc disease and facet arthropathy at L4-5 and L5 -S1.
== END 2021-12-15 11:41 | disposition home or self-care (01) ==
PROVIDERS: PCP Nurse Practitioner Family; Visit Provider Nurse Practitioner Obstetrics & Gynecology
DX: G89.29 Other chronic pain (principal); M51.37 Other intervertebral disc degeneration, lumbosacral region
CPT/HCPCS: 72110